=== PATIENT | female | born 2000 | race Two or more races ===

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

== ENCOUNTER 2022-04-13 08:52 | Emergency (ER) | payer OTHER, MEDICAID, SELFPAY ==
[2022-04-13] VITALS (12 sets, daily range): BP systolic 104–152; BP diastolic 67–81; PULSE 108–167; RESP 15–27; TEMP 36.9; O2SAT 98–100
--- NOTE | ~2022-04-13 | XR_ITS ---
Clinical Indication: Chest pain PA and lateral views of the chest: Comparison: 10/07/2020 Findings: The lungs are clear, without evidence of focal consolidation or pleural effusion. Cardiome diastinal silhouette is within normal limits. Bones and soft tissues are unremarkable. Impression: Normal chest. Reviewed, dictated and finalized at [facility]. ORT UTILITY WORKER Impression: Normal chest.
--- NOTE | 2022-04-13 09:18 | ED.CHESTPAIN ---
HPI - Chest Pain General Chief Complaint: Chest Pain Stated Complaint: chest pain, left arm pain, tachycardia Time Seen by Provider: 04/13/22 08:55 Source: patient and old records reviewed Mode of arrival: ambulatory Limitations: no limitations History of Present Illness HPI narrative: Patient is a 21 y/o female who presents to the ED with c/o CP, lightheadedness, and palpitations. Patient reports having pain in her left-sided chest, under her left breast for the past 2 days. Pain is intermittent, occurs several times a day, lasts a few minutes before resolving. She denies any known aggravating or alleviating factors. She has not tried anything for her pain. She notes a history of acid reflux, but does not currently take any medicine for this. She also notes a history of anxiety, but is also not on medicine. Patient also reports having constant lightheadedness for the past 2 days and palpitations, stating her heart rate will range from 40 to 160 bpm. Patient has a history of palpitations and tachycardia. Per patient's records, she had cardiac work-up [place] [address] Hendrickson which was unremarkable, with negative Holter monitors and stress testing. Holter monitor did record tachycardia, but no signs of SVT or atrial fibrillation. Patient does not follow with cardiology any further. Patient denies any shortness of breath, lower extremity edema or pain, pleuritic pain, cough, cold symptoms, fever, nausea, vomiting, abdominal pain, KEITA, syncope. Related Data Home Medications Medication Instructions Recorded Confirmed No Home Medications 04/13/22 04/13/22 Allergies Allergy/AdvReac Type Severity Reaction Status Date / Time No Known Allergies Allergy Verified 04/13/22 09:01 Review of Systems Review of Systems: CONSTITUTIONAL: Denies fever, chills, or sweats. EYES: Denies visual changes, redness, or discharge. ENT: Denies rhinorrhea, congestion, sore throat, or otalgia. CARDIOVASCULAR: See HPI. RESPIRATORY: Denies cough or dyspnea. GASTROINTESTINAL: Denies abdominal pain, nausea, vomiting, or diarrhea. MUSCULOSKELETAL: Denies back pain, joint pain, or myalgia. NEUROLOGIC: See HPI. All systems reviewed & are unremarkable except as noted in HPI and below PMFSH Past Medical History Medical History (Updated 04/13/22 @ 10:59 by Marina Rahman PA-C) ADD (attention deficit disorder) without hyperactivity Anxiety BMI 27.0-27.9,adult BMI 28.0-28.9,adult GERD (gastroesophageal reflux disease) Palpitations Surgical History Surgical History No significant past surgical history Family History Family History Father Alive and well Hypertension Mother Hypertension Epilepsy Sibling No problems noted. Social History Social History Smoking status: Never smoker Second hand tobacco smoke exposure: No Alcohol intake: never Substance use: never Substance use type: does not use Living arrangements: with family Occupation/Education: other Gender identity (if verbalized by the patient): Female Exam Narrative: GENERAL: Well appearing, obese, non-toxic, in no acute distress. HEAD: Normocephalic, atraumatic. NECK: Supple. No adenopathy, no masses. RESPIRATORY: Airway patent, respirations nonlabored. Clear to auscultation bilaterally, no rales, rhonchi, wheezing. CARDIOVASCULAR: Tachycardic with regular rhythm without murmurs, rubs, or gallops. Peripheral pulses 2+ and equal bilaterally. ABDOMINAL: Soft, nontender, nondistended, no hepatosplenomegaly. Normoactive BS. MUSCULOSKELETAL: Moves all extremities. Strength/ROM intact without gross deformities. No edema. No calf tenderness. No chest wall tenderness to palpation. SKIN: Warm, dry, normal color. No rashes. NEURO: A&O X3. Speech clear. Cranial nerves II-XII grossly intact. St
[2022-04-13 09:34] LABS: Basophils Percent Auto 0.3 % (0.2-1.2); Eosinophils Percent Auto 0.4 % (0-4.4); Hematocrit 38.4 % (37.0-47.0); Hemoglobin 13.6 g/dL (12.0-15.0); Immature Granulocyte Absolute 0.02 K/mm3 (0.00-0.031); Immature Granulocyte Percent A 0.2 % (0-0.5); Lymphocytes Absolute Auto 2.22 K/mm3 (0.9-3.2); Lymphocytes Percent Auto 22.6 % (18.3-44.2); Mean Corpuscular HGB Conc 35.4 g/dl (32-36); Mean Corpuscular Hemoglobin 29.8 pg (26-34); Mean Corpuscular Volume 84.2 fl (80-100); Mean Platelet Volume 10.4 fl (7.4-10.4); Monocytes Absolute Auto 0.5 K/mm3 (0.1-0.6); Neutrophils Percent Auto 71.5 % (45.5-73.1); Platelet Count Result 232 k/mm3 (150-375); Red Blood Count 4.56 M/mm3 (4.2-5.4); Red Cell Distribution Width 12.7 % (11.5-14.5); White Blood Count 9.8 K/mm3 (4.5-10.0)
[2022-04-13] MEDS: BELLADONNA ALK/PHENOB ELIX 10 ML, MAG HYDROX/ALUMINUM HYD/SIMETH 30 ML, LIDOCAINE HCL 2... PO (09:35)
[2022-04-13 09:38] LABS: Alanine Aminotransferase 19 U/L (6-35); Albumin Level 4.7 g/dL (3.5-5.1); Alkaline Phosphatase 89 U/L (38-126); Anion Gap 8 mmol/L (8-16); Aspartate Amino Transferase 23 U/L (14-36); Bilirubin,Total 0.5 mg/dL (0.2-1.3); Blood Urea Nitrogen 14 mg/dL (7-17); Calcium 8.5 mg/dL (8.4-10.2); Carbon Dioxide 22 mmol/L (22-30); Chloride 104 mmol/L (98-107); Estimated CRCL calculation 105 ml/min; Estimated Glomerular Filt Rate > 60; Glucose 104 mg/dL (65-110); Lipase 54 U/L (23-300); Potassium 3.5 mmol/L (3.4-5.0); Sodium 134 mmol/L (137-145)
[2022-04-13] MEDS: SODIUM CHLORIDE 0.9% IV 1,000 ML 999 ML IV CONT (09:45)
[2022-04-13 09:50] LABS: Troponin I < 0.012 ng/mL (0.000-0.034)
[2022-04-13 09:57] LABS: D Dimer 0.27 ug/mL (<0.48)
--- NOTE | 2022-04-13 10:07 | ECG_ITS ---
Measurements Intervals [place] Rate: 157 P: NM: 0 QRS: 64 QRSD: 88 T: 43 QT: 286 QTc: 463 Interpretive Statements SINUSS TACHYCARDIA BORDERLINE ST-T WAVE ABNORMALITY- ANT/INF LEADS BASELINE WANDER- III, V1-V3 ABNORMAL ECG COMPARED TO ECG 09/21/2020 15:19:34 NO SIGNIFICANT CHANGES Electronically Signed On 04-13-2022 10:23:08 FILE KEEPER by Vincent Hendrickson D.O.
--- NOTE | 2022-04-13 10:20 | ECG_ITS ---
Measurements Intervals [place] Rate: 116 P: 41 OR: 135 QRS: 50 QRSD: 93 T: 35 QT: 307 QTc: 426 Interpretive Statements SINUS TACHYCARDIA ABNORMAL ECG COMPARED TO ECG 04/13/2022 09:03:15 HEART RATE HAS DECREASED Electronically Signed On 04-13-2022 11:44:00 MARINE ENGINE DRIVER by Vincent Hendrickson D.O.
[2022-04-13 10:25] LABS: Magnesium 1.9 mg/dL (1.6-2.3)
--- NOTE | 2022-04-13 11:46 | PC.NURSE ---
holter monitor placed by cardiology
--- NOTE | 2022-04-26 15:03 | PC.NURSE ---
LATE ENTRY This note is being entered to document information to the patient's record. The following information was omitted on [04/13/22], by [Gale Giles]. NS stop time was 1049
== END 2022-04-13 11:46 | disposition home or self-care (01) ==
PROVIDERS: Emergency Provider Physician Assistant; PCP Family Medicine
DX: R07.89 Other chest pain (principal); R00.0 Tachycardia, unspecified; K21.9 Gastro-esophageal reflux disease without esophagitis; R94.31 Abnormal electrocardiogram [ECG] [EKG]
CPT/HCPCS: 36415; 71046; 80053; 81025; 83690; 83735; 84484; 85025; 85380; 93005; 96360; 99284; A9270; J7030

== ENCOUNTER 2022-06-18 18:20 | Emergency (ER) | payer OTHER, MEDICAID, SELFPAY ==
--- NOTE | ~2022-06-18 | XR_ITS ---
EXAMINATION: XR chest 2V DATE: 06/18/2022 19:01 INDICATION: Chest pain TECHNIQUE: PA and lateral views of the chest were obtained. COMPARISON: Chest radiograph dated 04/13/2022 FINDINGS: The lungs are clear with no focal airspace opacities, pulmonary edema, pleural effusion or pneumothor ax. The cardiomediastinal silhouette is normal. Visualized bones and soft tissues are unremarkable. IMPRESSION: 1. No acute cardiopulmonary disease. Reviewed, dictated and finalized at location A.
--- NOTE | 2022-06-18 18:22 | ECG_ITS ---
Measurements Intervals [place] Rate: 120 P: 50 WV: 124 QRS: 68 QRSD: 86 T: 27 QT: 320 QTc: 454 Interpretive Statements SINUS TACHYCARDIA NONSPECIFIC T-WAVE ABNORMALITY ABNORMAL RHYTHM ECG COMPARED TO ECG 04/13/2022 10:28:06 NO SIGNIFICANT ABNORMALITY Electronically Signed On 06-19-2022 15:16:04 CDT by Catarina Flores M.D.
[2022-06-18 18:41] LABS: Basophils Percent Auto 0.3 % (0.2-1.2); Eosinophils Percent Auto 0.5 % (0-4.4); Hematocrit 40.5 % (37.0-47.0); Hemoglobin 14.2 g/dL (12.0-15.0); Immature Granulocyte Absolute 0.02 K/mm3 (0.00-0.031); Immature Granulocyte Percent A 0.2 % (0-0.5); Lymphocytes Absolute Auto 2.29 K/mm3 (0.9-3.2); Lymphocytes Percent Auto 26.7 % (18.3-44.2); Mean Corpuscular HGB Conc 35.1 g/dl (32-36); Mean Corpuscular Hemoglobin 29.7 pg (26-34); Mean Corpuscular Volume 84.7 fl (80-100); Mean Platelet Volume 10.6 fl (7.4-10.4); Monocytes Absolute Auto 0.5 K/mm3 (0.1-0.6); Monocytes Percent Auto 5.4 % (2.6-8.5); Neutrophils Absolute Auto 5.7 K/mm3 (1.3-6.7); Neutrophils Percent Auto 66.9 % (45.5-73.1); Platelet Count Result 284 k/mm3 (150-375); Red Blood Count 4.78 M/mm3 (4.2-5.4); Red Cell Distribution Width 12.4 % (11.5-14.5); White Blood Count 8.6 K/mm3 (4.5-10.0)
[2022-06-18 18:56] LABS: Alanine Aminotransferase 19 U/L (6-35); Albumin Level 5.2 g/dL (3.5-5.1); Alkaline Phosphatase 103 U/L (38-126); Anion Gap 14 mmol/L (8-16); Aspartate Amino Transferase 30 U/L (14-36); Bilirubin,Total 0.7 mg/dL (0.2-1.3); Blood Urea Nitrogen 9 mg/dL (7-17); Calcium 9.2 mg/dL (8.4-10.2); Carbon Dioxide 21 mmol/L (22-30); Chloride 105 mmol/L (98-107); Estimated Glomerular Filt Rate > 60; Glucose 94 mg/dL (65-110); INR 1.1; Lipase 45 U/L (23-300); Potassium 3.8 mmol/L (3.4-5.0); Prothrombin Time 13.4 Seconds (11.1-14.7); Sodium 140 mmol/L (137-145)
[2022-06-18 18:57] LABS: Partial Thromboplastin Time 29.1 SECONDS (22.3-36.8)
[2022-06-18 19:05] LABS: Troponin I < 0.012 ng/mL (0.000-0.034)
[2022-06-18 19:08] VITALS: BP 146/99; PULSE 112; RESP 18; TEMP 36.9; O2SAT 98
[2022-06-18 22:45] VITALS: BP 132/71; PULSE 107; RESP 18; TEMP 36.6; O2SAT 100
[2022-06-18 23:27] LABS: Troponin I < 0.012 ng/mL (0.000-0.034)
[2022-06-19] VITALS (27 sets, daily range): BP systolic 101–121; BP diastolic 58–85; PULSE 82–133; RESP 17–25; TEMP 36.7; O2SAT 94–100
--- NOTE | 2022-06-19 03:10 | ED.GENADULT ---
HPI - General Adult General Chief complaint: Chest Pain Stated complaint: chest pain Time Seen by Provider: 06/19/22 02:56 History of Present Illness HPI narrative: Patient 21-year-old female who presents the emergency department with chief complaint of chest pain and palpitations. Patient reports that she has been having episodes of fast heart rate at times seeing Dr. Lopez with cardiology Related Data Home Medications Medication Instructions Recorded Confirmed No Home Medications 04/13/22 05/25/22 Allergies Allergy/AdvReac Type Severity Reaction Status Date / Time No Known Allergies Allergy Verified 05/25/22 13:48 [facility] Past Medical History Medical History ADD (attention deficit disorder) without hyperactivity Anxiety BMI 27.0-27.9,adult BMI 28.0-28.9,adult GERD (gastroesophageal reflux disease) Palpitations Surgical History Surgical History No significant past surgical history Family History Family History Father Alive and well Hypertension Mother Hypertension Epilepsy Sibling No problems noted. Social History Social History Smoking status: Never smoker Second hand tobacco smoke exposure: No Alcohol intake: never Substance use: never Substance use type: does not use Living arrangements: with family Occupation/Education: other Gender identity (if verbalized by the patient): Female Course Vital Signs Vital signs: Vital Signs Temperature 36.9 C 06/18/22 19:08 Pulse Rate 112 H 06/18/22 19:08 Respiratory Rate 18 06/18/22 19:08 Blood Pressure 146/99 H 06/18/22 19:08 Pulse Oximetry 98 06/18/22 19:08 Oxygen Delivery Room Air 06/18/22 19:08 Temperature 36.7 C 06/19/22 02:20 Pulse Rate 97 06/19/22 04:49 Respiratory Rate 18 06/19/22 04:49 Blood Pressure 105/83 06/19/22 04:49 Pulse Oximetry 100 06/19/22 04:49 Oxygen Delivery Room Air 06/19/22 02:23 Medical Decision Making Vital Signs Vital Signs: Vital Signs Temperature 36.9 C 06/18/22 19:08 Pulse Rate 112 H 06/18/22 19:08 Respiratory Rate 18 06/18/22 19:08 Blood Pressure 146/99 H 06/18/22 19:08 Pulse Oximetry 98 06/18/22 19:08 Oxygen Delivery Room Air 06/18/22 19:08 Temperature 36.7 C 06/19/22 02:20 Pulse Rate 97 06/19/22 04:49 Respiratory Rate 18 06/19/22 04:49 Blood Pressure 105/83 06/19/22 04:49 Pulse Oximetry 100 06/19/22 04:49 Oxygen Delivery Room Air 06/19/22 02:23 Lab Data 06/18/22 18:35 06/18/22 18:35 Labs: Lab Results 06/18/22 06/18/22 06/18/22 Range/Units 18:35 18:35 18:35 WBC 8.6 (4.5-10.0) K/mm3 RBC 4.78 (4.2-5.4) M/mm3 Hgb 14.2 (12.0-15.0) g/dL Hct 40.5 (37.0-47.0) % MCV 84.7 (80-100) fl MCH 29.7 (26-34) pg MCHC 35.1 (32-36) g/dl RDW 12.4 (11.5-14.5) % Plt Count 284 (150-375) k/mm3 MPV 10.6 H (7.4-10.4) fl Immature Gran % (Auto) 0.2 (0-0.5) % Neut % (Auto) 66.9 (45.5-73.1) % Lymph % (Auto) 26.7 (18.3-44.2) % Gaines % (Auto) 5.4 (2.6-8.5) % Eos % (Auto) 0.5 (0-4.4) % Baso % (Auto) 0.3 (0.2-1.2) % Lymph # (Auto) 2.29 (0.9-3.2) K/mm3 Gaines # (Auto) 0.5 (0.1-0.6) K/mm3 Eos # (Auto) 0.0 (0-0.3) K/mm3 Baso # (Auto) 0.0 (0.0-0.1) K/mm3 Abs Immat Gran (auto) 0.02 (0.00-0.031) K/mm3 Absolute Neuts (auto) 5.7 (1.3-6.7) K/mm3 Absolute Nucleated RBC 0.0 (0.0-0.012) K/mm3 Nucleated RBC % 0.0 (0.0-0.2) % PT 13.4 (11.1-14.7) Seconds INR 1.1 APTT 29.1 (22.3-36.8) SECONDS Sodium 140 (137-145) mmol/L Potassium 3.8 (3.4-5.0) mmol/L Chloride 105 (98-107) mmol/L Carbon Dioxide 21 L (22-30) mmol/L
--- NOTE | 2022-06-19 03:15 | ED.GENADULT ---
HPI - General Adult General Chief complaint: Chest Pain Stated complaint: chest pain Time Seen by Provider: 06/19/22 02:56 History of Present Illness HPI narrative: Patient 21-year-old female who presents emergency department chief complaint of chest pain and palpitations. Patient reports that she has been seeing cardiology Dr. Hendrickson and has had a Holter monitor test the patient states that today she came in after she has been feeling lightheaded and noticed that her heart rates been running somewhat fast. Patient states she had a sharp-like sensation in her chest patient reports the pain is not improved by anything nor is it worse but again. Related Data Home Medications Medication Instructions Recorded Confirmed No Home Medications 04/13/22 05/25/22 Allergies Allergy/AdvReac Type Severity Reaction Status Date / Time No Known Allergies Allergy Verified 05/25/22 13:48 Review of Systems Review of Systems: A 10 system review of systems was completed on the patient and is negative except for what is stated in the HPI. Nursing and ancillary documentation was reviewed. [facility] Past Medical History Medical History ADD (attention deficit disorder) without hyperactivity Anxiety BMI 27.0-27.9,adult BMI 28.0-28.9,adult GERD (gastroesophageal reflux disease) Palpitations Surgical History Surgical History No significant past surgical history Family History Family History Father Alive and well Hypertension Mother Hypertension Epilepsy Sibling No problems noted. Social History Social History Smoking status: Never smoker Second hand tobacco smoke exposure: No Alcohol intake: never Substance use: never Substance use type: does not use Living arrangements: with family Occupation/Education: other Gender identity (if verbalized by the patient): Female Exam Narrative: GENERAL: Well-appearing, well-nourished, and in no acute distress. HEAD: Normocephalic, atraumatic. EYES: PERRLA and EOMI. ENT: Nares clear, no rhinorrhea or epistaxis. Mucous membranes moist. NECK: Supple. CHEST: Clear to auscultation. No respiratory distress. HEART: Regular rate and rhythm. No murmur heard. Normal peripheral pulses. ABDOMEN: Soft, nontender, nondistended, normal active bowel sounds. EXTREMITIES: Normal range of motion. No edema. SKIN: Warm, dry, no rash. NEURO: No focal deficits. Alert and oriented x3. PSYCH: Normal mood and affect. Course Vital Signs Vital signs: Vital Signs Temperature 36.9 C 06/18/22 19:08 Pulse Rate 112 H 06/18/22 19:08 Respiratory Rate 18 06/18/22 19:08 Blood Pressure 146/99 H 06/18/22 19:08 Pulse Oximetry 98 06/18/22 19:08 Oxygen Delivery Room Air 06/18/22 19:08 Temperature 36.7 C 06/19/22 02:20 Pulse Rate 117 H 06/19/22 05:11 Respiratory Rate 18 06/19/22 04:49 Blood Pressure 118/80 06/19/22 05:11 Pulse Oximetry 100 06/19/22 04:49 Oxygen Delivery Room Air 06/19/22 02:[address] [facility] Narrative Medical decision making narrative: Medical diagnosis includes dysrhythmia, dehydration, electrolyte abnormality, NSTEMI, ACS EKG is sinus tachycardia rate of [address] elevation or ST depression Discomfort has been ongoing patient did have 2 negative sets of troponins while in the lobby electrolytes showed a potassium of 3.8 she has normal renal function normal liver enzymes CBC showed a hemoglobin of 14.2 Patient is low risk for ACS and has had 2 negative troponins. Orthostatics will be checked on the patient and the plan will be to discharge the patient to have her follow-up with Dr. Hendrickson Patient did have an increase in her heart rate and a slight drop in her blood pres
[2022-06-19] MEDS: SODIUM CHLORIDE 0.9% IV 1,000 ML 999 ML IV CONT (04:18)
== END 2022-06-19 05:48 | disposition home or self-care (01) ==
PROVIDERS: Emergency Medicine; Emergency Provider Emergency Medicine; PCP Family Medicine
DX: R07.89 Other chest pain (principal); R00.2 Palpitations; K21.9 Gastro-esophageal reflux disease without esophagitis
CPT/HCPCS: 36415; 71046; 80053; 83690; 84484; 85025; 85610; 85730; 93005; 96360; 99283; J7030

== ENCOUNTER 2022-10-16 01:34 | Emergency (ER) | payer OTHER, MEDICAID, SELFPAY ==
--- NOTE | ~2022-10-16 | US_ITS ---
EXAMINATION: US pelvic complete DATE: 10/16/2022 07:56 INDICATION: Ovarian cyst. TECHNIQUE: Multiple transabdominal sonographic images of the pelvis were obtained. COMPARISON: CT abdomen and pelvis 10/16/22, ultrasound 12/07/16 FINDINGS: The uterus measures 7.1 x 2.8 x 4.8 cm. There is no free fluid in the pelvis. The endometrial complex is not well visualized, but is likely normal in thickness. The right ovary measures 6.4 x 5.0 x 5.4 cm. There is a 5.7 cm cyst with eccentric low-level echoes in right ovary. The left ovary measures 2. 9 x 1.9 x 2.2 cm. There is normal vascular flow in the ovaries. IMPRESSION: 1. 5.7 cm cystic mass in right ovary, likely a hemorrhagic cyst. Pelvis ultrasound is recommended in 6-12 weeks. Reviewed, dictated and finalized at location A. IMPRESSION: 1. 5.7 cm cystic mass in right ovary, likely a hemorrhagic cyst. Pelvis ultraso und is recommended in 6-12 weeks.
--- NOTE | ~2022-10-16 | CT_ITS ---
CT of the Abdomen and Pelvis: Indication: Abdominal Technique: 2.5 mm axial scans were obtained through the abdomen and pelvis following intravenous adm inistration of 100 cc of Omnipaque 350. Dose reduction technique was used on this scan by utilizing a utomated exposure control and iterative reconstruction technique. The dose-length product (DLP) was 4 76.84 mGy-cm. COMPARISON: 05/11/2018 Findings: Scans through the lung bases are unremarkable. The liver, spleen, pancreas, gallbladder, adrenals and kidneys are within normal limits. No evidence of aortic aneurysm. No lymphadenopathy. No bowel obstruction or bowel wall thickening. There is no evidence to suggest acute appendicitis. Images through the pelvis were performed. Urinary bladder unremarkable. There is a 5.9 cm adnexal cys tic mass, which may arise from the right ovary although it is mildly displaced to the left. No ascite s. Impression: 5.9 cm adnexal cyst, which may arise from the right ovary despite being just left of midline. Conside r ultrasound to assess for torsion. Reviewed, dictated and finalized at location M. Impression: 5.9 cm adnexal cyst, which may arise from the right ovary despite being just le ft of midline. Consider ultrasound to assess for torsion.
[2022-10-16 01:43] VITALS: BP 118/73; PULSE 109; RESP 14; TEMP 36.3; O2SAT 100
[2022-10-16 01:57] LABS: Basophils Percent Auto 0.3 % (0.2-1.2); Eosinophils Percent Auto 0.2 % (0-4.4); Immature Granulocyte Absolute 0.04 K/mm3 (0.00-0.031); Immature Granulocyte Percent A 0.3 % (0-0.5); Lymphocytes Absolute Auto 3.27 K/mm3 (0.9-3.2); Lymphocytes Percent Auto 23.2 % (18.3-44.2); Mean Corpuscular Hemoglobin 29.8 pg (26-34); Mean Corpuscular Volume 85.1 fl (80-100); Mean Platelet Volume 10.7 fl (7.4-10.4); Monocytes Absolute Auto 0.8 K/mm3 (0.1-0.6); Monocytes Percent Auto 5.6 % (2.6-8.5); Neutrophils Absolute Auto 9.9 K/mm3 (1.3-6.7); Neutrophils Percent Auto 70.4 % (45.5-73.1); Platelet Count Result 268 k/mm3 (150-375); Red Cell Distribution Width 12.6 % (11.5-14.5); White Blood Count 14.1 K/mm3 (4.5-10.0)
[2022-10-16 02:07] LABS: Alanine Aminotransferase 55 U/L (6-35); Albumin Level 5.2 g/dL (3.5-5.1); Alkaline Phosphatase 109 U/L (38-126); Anion Gap 14 mmol/L (8-16); Aspartate Amino Transferase 34 U/L (14-36); Bilirubin,Total 0.6 mg/dL (0.2-1.3); Blood Urea Nitrogen 10 mg/dL (7-17); Calcium 9.8 mg/dL (8.4-10.2); Carbon Dioxide 23 mmol/L (22-30); Chloride 103 mmol/L (98-107); Estimated CRCL calculation 92 ml/min; Estimated Glomerular Filt Rate > 60; Glucose 100 mg/dL (65-110); Potassium 3.5 mmol/L (3.4-5.0); Sodium 140 mmol/L (137-145)
[2022-10-16 02:10] LABS: Appearance Urine Turbid (Clear); Bacteria Urine 3+ /hpf; Bilirubin Urine Negative (Negative); Blood Urine 3+ (Negative); Color Urine Yellow (Yellow); Glucose Urine UA Negative (Negative); Ketones Urine Trace mg/dL (Negative); Leukocyte Esterase Ur 1+ LEU/UL (Negative); Need Manual Microscopic Reviewed; Nitrate Urine Negative (Negative); Protein Urine 1+ mg/dL (Negative); Specific Grav Ur 1.033 (1.001-1.035); Squamous Epithelial Cell Urine Many /hpf (Few); pH Urine 5.5 (5.0-9.0)
[2022-10-16 02:16] LABS: Add Urine Microscopic? YES
[2022-10-16] MEDS: SODIUM CHLORIDE 0.9% IV 1,000 ML 999 ML IV CONT (03:49)
[2022-10-16] MEDS: ONDANSETRON INJ 4 MG/2 ML VIAL IV PUSH (03:49)
[2022-10-16] MEDS: MORPHINE SULFATE (*CRX) 4 MG/ML INJ IV PUSH (03:58)
--- NOTE | 2022-10-16 04:16 | ED.GENADULT ---
HPI - General Adult General Chief complaint: Abdominal Pain <Lance Joseph MD - Last Filed: 10/16/22 06:48> Stated complaint: R flank/abd pain <Lance Joseph MD - Last Filed: 10/16/22 06:48> Time Seen by Provider: 10/16/22 03:21 <Lance Joseph MD - Last Filed: 10/16/22 06:48> History of Present Illness HPI narrative: Patient is a 22-year-old female who presents the emergency department with chief complaint of abdominal pain patient reports that she started having pain in the right side of her abdomen patient reports that sharp type pain reports not improved by anything. Patient reports no prior intra-abdominal surgeries reports no fever reports she had a little bit of nausea <Lance Joseph MD - Last Filed: 10/16/22 06:48> Related Data Allergies/adverse reactions: Allergies Allergy/AdvReac Type Severity Reaction Status Date / Time No Known Allergies Allergy Verified 10/16/22 02:18 <Lance Joseph MD - Last Filed: 10/16/22 06:48> Review of Systems Review of Systems: A 10 system review of systems was completed on the patient and is negative except for what is stated in the HPI. Nursing and ancillary documentation was reviewed. <Lance Joseph MD - Last Filed: 10/16/22 06:48> PMFSH Past Medical History Medical History: Medical History ADD (attention deficit disorder) without hyperactivity Anxiety BMI 27.0-27.9,adult BMI 28.0-28.9,adult GERD (gastroesophageal reflux disease) Palpitations <Lance Joseph MD - Last Filed: 10/16/22 06:48> Surgical History Surgical History: Surgical History No significant past surgical history <Lance Joseph MD - Last Filed: 10/16/22 06:48> Family History Family History: Family History Father Alive and well Hypertension Mother Hypertension Epilepsy Sibling No problems noted. <Lanec Joseph MD - Last Filed: 10/16/22 06:48> Social History Social History: Social History Smoking status: Never smoker Second hand tobacco smoke exposure: No Alcohol intake: never Substance use: never Substance use type: does not use Living arrangements: with family Occupation/Education: other Gender identity (if verbalized by the patient): Female <Lance Joseph MD - Last Filed: 10/16/22 06:48> Exam Narrative: GENERAL: Well-appearing, well-nourished, and in no acute distress. HEAD: Normocephalic, atraumatic. EYES: PERRLA and EOMI. ENT: Nares clear, no rhinorrhea or epistaxis. Mucous membranes moist. NECK: Supple. CHEST: Clear to auscultation. No respiratory distress. HEART: Regular rate and rhythm. No murmur heard. Normal peripheral pulses. ABDOMEN: Soft, tenderness to palpation in the right upper quadrant, nondistended, normal active bowel sounds. EXTREMITIES: Normal range of motion. No edema. SKIN: Warm, dry, no rash. NEURO: No focal deficits. Alert and oriented x3. PSYCH: Normal mood and affect. <Lance Joseph MD - Last Filed: 10/16/22 06:48> Course Vital Signs Vital signs: Vital Signs Temperature 97.4 F L 10/16/22 01:43 Pulse Rate 109 H 10/16/22 01:43 Respiratory Rate 14 10/16/22 01:43 Blood Pressure 118/73 10/16/22 01:43 Pulse Oximetry 100 10/16/22 01:43 Oxygen Delivery Room Air 10/16/22 01:43 Temperature 97.4 F L 10/16/22 01:43 Pulse Rate 93 10/16/22 07:48 Respiratory Rate 18 10/16/22 07:48 Blood Pressure 118/89 10/16/22 07:48 Pulse Oximetry 100 10/16/22 07:48 Oxygen Delivery Room Air 10/16/22 01:43 <Lance Joseph MD - Last Filed: 10/16/22 06:48> Vital Signs
[2022-10-16 06:09] VITALS: BP 107/62; PULSE 84; RESP 14; O2SAT 100
[2022-10-16 07:48] VITALS: BP 118/89; PULSE 93; RESP 18; O2SAT 100
== END 2022-10-16 08:38 | disposition home or self-care (01) ==
PROVIDERS: Emergency Provider Emergency Medicine; PCP Family Medicine
DX: N39.0 Urinary tract infection, site not specified (principal); N94.89 Other specified conditions associated with female genital organs and menstrual cycle; R10.9 Unspecified abdominal pain
CPT/HCPCS: 36415; 74177; 76856; 80053; 81001; 81025; 85025; 87086; 87088; 96361; 96374; 96375; 99284; J2270; J2405; J7030; Q9967

== ENCOUNTER 2022-11-12 00:37 | Emergency (ER) | payer OTHER, MEDICAID, SELFPAY ==
[2022-11-12] VITALS (8 sets, daily range): BP systolic 100–133; BP diastolic 55–83; PULSE 72–105; RESP 15–20; TEMP 36.2; O2SAT 91–100
--- NOTE | ~2022-11-12 | US_ITS ---
Pelvic ultrasound. Clinical History: Pelvic pain COMPARISON: 10/16/2022 Technique: Realtime transabdominal scanning of the pelvis was performed. Color flow Doppler and Doppl er spectral analysis were performed. Patient refused transvaginal imaging. Findings: The uterus is anteverted. The endometrial stripe has a thickness of 4 mm. No focal mass is identified. The right ovary is not visualized. No significant right ovarian or adnexal mass is seen. The left ovary measures 3.0 x 2.1 x 2.5 cm. No significant left ovarian or adnexal mass is seen. There is no evidence of free fluid in the cul de sac. Impression: Uterus and left ovary are unremarkable. Right ovary not visualized. Reviewed, dictated and finalized at [facility]. Impression: Uterus and left ovary are unremarkable. Right ovary not visualized.
--- NOTE | ~2022-11-12 | CT_ITS ---
CT of the Abdomen and Pelvis: Indication: Right lower quadrant pain COMPARISON: 10/16/2022 Technique: 2.5 mm axial scans were obtained through the abdomen and pelvis following intravenous adm inistration of 100 cc of Omnipaque 350. Dose reduction technique was used on this scan by utilizing a utomated exposure control and iterative reconstruction technique. The dose-length product (DLP) was 4 52.15 mGy-cm. Findings: Scans through the lung bases are unremarkable. The liver, spleen, pancreas, gallbladder, adrenals and kidneys are within normal limits. No evidence of aortic aneurysm. No lymphadenopathy. No bowel obstruction or bowel wall thickening. There is no evidence to suggest acute appendicitis. Images through the pelvis were performed. Urinary bladder unremarkable. No adnexal mass evident. No a scites. Impression: No significant abnormalities seen. Reviewed, dictated and finalized at [facility]. Impression: No significant abnormalities seen.
[2022-11-12 00:54] LABS: Appearance Urine Clear (Clear); Bacteria Urine 1+ /hpf; Bilirubin Urine Negative (Negative); Blood Urine Trace (Negative); Color Urine Yellow (Yellow); Glucose Urine UA Negative (Negative); Ketones Urine Negative (Negative); Leukocyte Esterase Ur 1+ LEU/UL (Negative); Nitrate Urine Negative (Negative); Non Pathogenic Casts 0-2; Protein Urine Negative (Negative); Specific Grav Ur 1.023 (1.001-1.035); Squamous Epithelial Cell Urine Occasional /hpf (Few); WBC Urine 21-50 /hpf; pH Urine 6.5 (5.0-9.0)
[2022-11-12 01:03] LABS: Add Urine Microscopic? YES
[2022-11-12 01:16] LABS: Basophils Absolute Auto 0.1 K/mm3 (0.0-0.1); Basophils Percent Auto 0.4 % (0.2-1.2); Eosinophils Absolute Auto 0.1 K/mm3 (0-0.3); Eosinophils Percent Auto 0.7 % (0-4.4); Hematocrit 41.2 % (37.0-47.0); Hemoglobin 14.3 g/dL (12.0-15.0); Immature Granulocyte Absolute 0.02 K/mm3 (0.00-0.031); Immature Granulocyte Percent A 0.2 % (0-0.5); Lymphocytes Absolute Auto 3.36 K/mm3 (0.9-3.2); Lymphocytes Percent Auto 28.9 % (18.3-44.2); Mean Corpuscular HGB Conc 34.7 g/dl (32-36); Mean Corpuscular Hemoglobin 29.9 pg (26-34); Mean Platelet Volume 10.8 fl (7.4-10.4); Monocytes Absolute Auto 0.6 K/mm3 (0.1-0.6); Monocytes Percent Auto 5.3 % (2.6-8.5); Neutrophils Absolute Auto 7.5 K/mm3 (1.3-6.7); Neutrophils Percent Auto 64.5 % (45.5-73.1); Platelet Count Result 261 k/mm3 (150-375); Red Blood Count 4.79 M/mm3 (4.2-5.4); Red Cell Distribution Width 12.4 % (11.5-14.5); White Blood Count 11.6 K/mm3 (4.5-10.0)
[2022-11-12 01:27] LABS: Alanine Aminotransferase 21 U/L (6-35); Albumin Level 5.2 g/dL (3.5-5.1); Alkaline Phosphatase 97 U/L (38-126); Anion Gap 12 mmol/L (8-16); Aspartate Amino Transferase 30 U/L (14-36); Bilirubin,Total 0.4 mg/dL (0.2-1.3); Blood Urea Nitrogen 12 mg/dL (7-17); Calcium 9.8 mg/dL (8.4-10.2); Carbon Dioxide 26 mmol/L (22-30); Chloride 103 mmol/L (98-107); Estimated CRCL calculation 94 ml/min; Estimated Glomerular Filt Rate > 60; Glucose 100 mg/dL (65-110); Lipase 67 U/L (23-300); Potassium 3.7 mmol/L (3.4-5.0); Sodium 141 mmol/L (137-145)
--- NOTE | 2022-11-12 02:08 | PC.NURSE ---
US called this RN and asked for pt to be drinking water as a full bladder is needed for test.
--- NOTE | 2022-11-12 02:27 | PC.NURSE ---
Pt to US at this time.
--- NOTE | 2022-11-12 03:49 | ED.GENADULT ---
HPI - General Adult General Chief complaint: Abdominal Pain Stated complaint: side and abdominal pain Time Seen by Provider: 11/12/22 01:11 History of Present Illness HPI narrative: Patient is a 22-year-old female who presents the emergency department with chief complaint of right lower quadrant pain. The patient reports that she has history of ovarian cyst reports that she has pain in the right lower quadrant is gotten worse patient reports that she had a large ovarian cyst on the right side and was seen in the emergency department several weeks ago the patient reports that the pain has been doing okay and then tonight things got worse. Patient reports the pain is worse with movement and improved with rest Related Data Allergies Allergy/AdvReac Type Severity Reaction Status Date / Time No Known Allergies Allergy Verified 10/16/22 02:18 Review of Systems Review of Systems: A 10 system review of systems was completed on the patient and is negative except for what is stated in the HPI. Nursing and ancillary documentation was reviewed. PMFSH Past Medical History Medical History ADD (attention deficit disorder) without hyperactivity Anxiety BMI 27.0-27.9,adult BMI 28.0-28.9,adult GERD (gastroesophageal reflux disease) Palpitations Surgical History Surgical History No significant past surgical history Family History Family History Father Alive and well Hypertension Mother Hypertension Epilepsy Sibling No problems noted. Social History Social History Smoking status: Never smoker Second hand tobacco smoke exposure: No Alcohol intake: never Substance use: never Substance use type: does not use Living arrangements: with family Occupation/Education: other Gender identity (if verbalized by the patient): Female Exam Narrative: GENERAL: Well-appearing, well-nourished, and in no acute distress. HEAD: Normocephalic, atraumatic. EYES: PERRLA and EOMI. ENT: Nares clear, no rhinorrhea or epistaxis. Mucous membranes moist. NECK: Supple. CHEST: Clear to auscultation. No respiratory distress. HEART: Regular rate and rhythm. No murmur heard. Normal peripheral pulses. ABDOMEN: Soft, tenderness to palpation in the right lower quadrant, nondistended, normal active bowel sounds. EXTREMITIES: Normal range of motion. No edema. SKIN: Warm, dry, no rash. NEURO: No focal deficits. Alert and oriented x3. PSYCH: Normal mood and affect. Course Vital Signs Vital signs: Vital Signs Temperature 36.2 C L 11/12/22 00:44 Pulse Rate 105 H 11/12/22 00:44 Respiratory Rate 15 11/12/22 00:44 Blood Pressure 133/80 11/12/22 00:44 Pulse Oximetry 98 11/12/22 00:44 Oxygen Delivery Room Air 11/12/22 00:44 Temperature 36.2 C L 11/12/22 00:44 Pulse Rate 85 11/12/22 05:30 Respiratory Rate 20 11/12/22 05:30 Blood Pressure 101/55 L 11/12/22 05:30 Pulse Oximetry 95 11/12/22 05:30 Oxygen Delivery Room Air 11/12/22 00:44 Medical Decision Making [facility] Narrative Medical decision making narrative: Differential diagnosis includes ovarian torsion, ovarian cyst, appendicitis, Studies were obtained which showed a white blood cell count of 11.6 electrolytes are within normal limits lipase was 67 urinalysis showed 21-[address] scan of the abdomen pelvis showed no evidence of appendicitis Ultrasound showed no evidence of large ovarian cyst the right ovary was not visualized Vital Signs Vital Signs: Vital Signs Temperature 36.2 C L 11/12/22 00:44 Pulse Rate 105 H 11/12/22 00:44 Respiratory Rate 15 11/12/22 00:44 Blood Pressure 133/80 11/12/22 00:44 Pulse Oximetry 98 11/12/22 00:44 Oxygen Delive
== END 2022-11-12 06:25 | disposition home or self-care (01) ==
PROVIDERS: Emergency Provider Emergency Medicine; PCP Family Medicine
DX: R10.31 Right lower quadrant pain (principal); N39.0 Urinary tract infection, site not specified; F98.8 Other specified behavioral and emotional disorders with onset usually occurring in childhood and adolescence; F41.9 Anxiety disorder, unspecified; K21.9 Gastro-esophageal reflux disease without esophagitis
CPT/HCPCS: 36415; 74177; 76856; 80053; 81001; 81025; 83690; 85025; 87077; 87086; 87088; 99284; Q9967

== ENCOUNTER 2023-01-20 20:17 | Emergency (ER) | payer OTHER, MEDICAID, SELFPAY ==
--- NOTE | ~2023-01-20 | CT_ITS ---
Noncontrast CT scan of the cervical spine Technique: Multiple contiguous axial [address] images of the cervical spine were obtained and rec onstructed in 2D sagittal and coronal planes on the acquisition scanner. Dose reduction technique was used on this scan by utilizing automated exposure control, adjustment of the mA and/or kV according to patient size. The dose-length product (DLP) was 445.20 mGy-cm. Clinical History: Pain Findings: No fractures or dislocations. Unremarkable visualized bony structures. The intervertebral disc spaces are preserved. No prevertebral soft tissue swelling. Impression: No fracture or subluxation of the cervical spine. Reviewed, dictated and finalized at location . RIAL RECLAIMER Impression: No fracture or subluxation of the cervical spine.
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
[2023-01-20 20:44] VITALS: BP 127/84; PULSE 113; RESP 16; TEMP 36.5; O2SAT 100
[2023-01-20] MEDS: HYDROcodone/acetaminophen (*CRX) 5-325 MG TABLET 1 TAB PO (22:37)
[2023-01-20 22:45] VITALS: BP 124/79; PULSE 99; RESP 18; O2SAT 100
--- NOTE | 2023-01-21 00:09 | PC.NURSE ---
Report received from STEPHANIE Wiggins. Assumed care of patient at this time.
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
[2023-01-21 00:57] VITALS: BP 118/62; PULSE 98; RESP 17; O2SAT 100
[2023-01-21] MEDS: KETOROLAC (*BKC) 60 MG/2 ML VIAL IM (01:34)
== END 2023-01-21 02:17 | disposition home or self-care (01) ==
PROVIDERS: Emergency Provider Emergency Medicine; PCP Family Medicine
DX: M54.2 Cervicalgia (principal); S09.90XA Unspecified injury of head, initial encounter; V89.2XXA Person injured in unspecified motor-vehicle accident, traffic, initial encounter
CPT/HCPCS: 70450; 72125; 96372; 99284; A9270; J1885

== ENCOUNTER 2023-02-12 14:14 | Outpatient (CLI) | payer OTHER, MEDICAID, SELFPAY ==
[2023-02-12 15:26] LABS: Thyroid Stimulating Hormone 0.913 uIU/mL (0.465-4.680)
== END 2023-02-12 14:15 | disposition home or self-care (01) ==
LOC: ANHLAB 14:16
PROVIDERS: PCP Family Medicine; Visit Provider Nurse Practitioner Family
DX: R06.81 Apnea, not elsewhere classified (principal); Z13.29 Encounter for screening for other suspected endocrine disorder
CPT/HCPCS: 36415; 84443

== ENCOUNTER 2023-02-12 20:36 | Emergency (ER) | payer OTHER, MEDICAID, SELFPAY ==
--- NOTE | ~2023-02-12 | XR_ITS ---
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 RESULT: Lines, tubes, and devices: None. Lungs and pleura: Clear. Cardiomediastinal silhouette: Stable. Other: No acute osseous or upper abdominal finding. IMPRESSION: No acute cardiopulmonary process. Reviewed, dictated and finalized at location K. 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
[2023-02-12 20:52] VITALS: BP 121/82; PULSE 121; RESP 18; TEMP 36.6; O2SAT 100
[2023-02-12 21:35] LABS: Strep Group A RT-PCR NOT DETECTED (Negative)
[2023-02-12 21:46] LABS: Influenza A QL RT-PCR Negative (Negative); Influenza B QL RT-PCR Negative (Negative); SARS-CoV-2 RNA PCR Positive (Negative)
--- NOTE | 2023-02-12 22:46 | PC.NURSE ---
Assumed care of pt from STEPHANIE Arizmendi at this time.
--- NOTE | 2023-02-12 23:12 | ECG_ITS ---
Measurements Intervals [place] Rate: 111 P: 23 [place]: 138 QRS: 58 QRSD: 90 T: 42 QT: 314 QTc: 428 Interpretive Statements SINUS TACHYCARDIA ABNORMAL ECG COMPARED TO ECG 06/18/2022 18:29:27 NO SIGNIFICANT CHANGES Electronically Signed On 02-13-2023 6:23:31 FOOD SERVICE DIRECTOR by Vincent Hendrickson D.O.
--- NOTE | 2023-02-12 23:15 | ED.URI ---
HPI - URI/Sore Throat General Chief Complaint: Upper Respiratory Infection Stated Complaint: flu symptoms Time Seen by Provider: 02/12/23 22:37 History of Present Illness HPI Narrative: 22-year-old female reports for evaluation for sore throat, cough and nasal congestion for the past 4-5 days. Patient states today she began developing intermittent pleuritic chest pain to left anterior chest wall. She denies radiating symptoms, nausea or diaphoresis. She denies known fever but does report chills. She reports a positive sick contact with her mother who recently had COVID. She denies abdominal pain, shortness of breath, dysuria or hematuria, history of BT, swelling or pain in her legs, recent surgeries or hospitalizations. She does report diarrhea few days ago that has since resolved. Related Data Allergies Allergy/AdvReac Type Severity Reaction Status Date / Time No Known Allergies Allergy Verified 02/12/23 13:38 Review of Systems Review of Systems: CONSTITUTIONAL: Denies fever, chills, or sweats. EYES: Denies visual changes, redness, or discharge. ENT: see HPI CARDIOVASCULAR: See HPI RESPIRATORY: see HPI GASTROINTESTINAL: Denies abdominal pain, nausea, vomiting, or diarrhea. GENITOURINARY: Denies dysuria or hematuria. SKIN: Denies rash or itching. MUSCULOSKELETAL: Denies back pain, joint pain, or myalgia. NEUROLOGIC: Denies headache, numbness, or weakness. PSYCHIATRIC: Denies anxiety or depression. [facility] Past Medical History Medical History ADD (attention deficit disorder) without hyperactivity Anxiety BMI 27.0-27.9,adult BMI 28.0-28.9,adult BMI 30.0-30.9,adult GERD (gastroesophageal reflux disease) Palpitations Surgical History Surgical History No significant past surgical history Family History Family History Father Alive and well Hypertension Mother Hypertension Epilepsy Sibling No problems noted. Social History Social History Smoking status: Never smoker Second hand tobacco smoke exposure: No Alcohol intake: never Substance use: never Substance use type: does not use Living arrangements: with family Occupation/Education: other Gender identity (if verbalized by the patient): Female Exam Narrative: GENERAL: Well-appearing, well-nourished, and in no acute distress. patient resting comfortably in exam bed. She is pleasant and conversational. HEAD: Normocephalic, atraumatic. EYES: PERRLA and EOMI. ENT: Nares clear, no rhinorrhea or epistaxis. Mucous membranes moist. Bilateral TM impaction. Canals Otherwise normal. posterior pharynx with mild erythema. No tonsillar hypertrophy or exudates. Uvula midline. No hot potato voice. NECK: Supple. CHEST: Clear to auscultation. No respiratory distress. No tenderness to the chest wall. HEART: Regular rate and rhythm. No murmur heard. Normal peripheral pulses. ABDOMEN: Soft, nontender, nondistended, normal active bowel sounds. No CVA tenderness. EXTREMITIES: Normal range of motion. No edema. Negative Homans bilaterally. SKIN: Warm, dry, no rash. NEURO: No focal deficits. Alert and oriented x3 Course Vital Signs Vital signs: Vital Signs Temperature 97.8 F 02/12/23 20:52 Pulse Rate 121 H 02/12/23 20:52 Respiratory Rate 18 02/12/23 20:52 Blood Pressure 121/82 02/12/23 20:52 Pulse Oximetry 100 02/12/23 20:52 Oxygen Delivery Room Air 02/12/23 20:52 Temperature 97.8 F 02/12/23 20:52 Pulse Rate 106 H 02/13/23 02:36 Respiratory Rate 23 H 02/13/23 02:36 Blood Pressure 124/81 02/13/23 02:17 Pulse Oximetry 97 02/13/23 02:36 Oxygen Delivery Room Air 02/12/23 20:52 MDM - URI/Sore Throat MDM Narrative Medical decision making narrative: 22-year
[2023-02-12] MEDS: SODIUM CHLORIDE 0.9% IV 1,000 ML 999 ML IV CONT (23:45)
[2023-02-13 00:07] LABS: Basophils Percent Auto 0.2 % (0.2-1.2); Eosinophils Percent Auto 0.2 % (0-4.4); Immature Granulocyte Absolute 0.02 K/mm3 (0.00-0.031); Immature Granulocyte Percent A 0.2 % (0-0.5); Lymphocytes Absolute Auto 1.36 K/mm3 (0.9-3.2); Lymphocytes Percent Auto 15.1 % (18.3-44.2); Mean Corpuscular Hemoglobin 29.1 pg (26-34); Mean Corpuscular Volume 83.2 fl (80-100); Mean Platelet Volume 11.1 fl (7.4-10.4); Monocytes Percent Auto 10.8 % (2.6-8.5); Neutrophils Absolute Auto 6.6 K/mm3 (1.3-6.7); Neutrophils Percent Auto 73.5 % (45.5-73.1); Platelet Count Result 267 k/mm3 (150-375); Red Blood Count 4.81 M/mm3 (4.2-5.4); Red Cell Distribution Width 12.3 % (11.5-14.5)
[2023-02-13 00:18] LABS: Partial Thromboplastin Time 28.8 SECONDS (22.3-36.8); Prothrombin Time 13.2 Seconds (11.1-14.7)
[2023-02-13 00:20] LABS: Alanine Aminotransferase 24 U/L (6-35); Albumin Level 3.7 g/dL (3.5-5.1); Alkaline Phosphatase 89 U/L (38-126); Anion Gap 12 mmol/L (8-16); Aspartate Amino Transferase 31 U/L (14-36); Bilirubin,Total 0.5 mg/dL (0.2-1.3); Blood Urea Nitrogen 8 mg/dL (7-17); Calcium 9.2 mg/dL (8.4-10.2); Carbon Dioxide 23 mmol/L (22-30); Chloride 102 mmol/L (98-107); Estimated CRCL calculation 108 ml/min; Estimated Glomerular Filt Rate > 60; Glucose 114 mg/dL (65-110); Lipase 55 U/L (23-300); Potassium 3.6 mmol/L (3.4-5.0); Sodium 137 mmol/L (137-145)
[2023-02-13 00:32] LABS: NT Pro B Type Natriuretic Pept < 20 pg/mL (19.9-100); Troponin I < 0.012 ng/mL (0.000-0.034)
[2023-02-13 00:33] LABS: SPREG INTERNAL CONTROL Positive; Serum Qual hCG Negative
[2023-02-13 00:34] LABS: D Dimer < 0.27 ug/mL (<0.48)
[2023-02-13 00:36] LABS: Monoscreen Negative (Negative); Negative Monotest Control Negative (Negative); Positive Monotest Control Positive (Positive)
[2023-02-13] MEDS: SODIUM CHLORIDE 0.9% IV 1,000 ML 999 ML IV CONT (01:16)
[2023-02-13] MEDS: KETOROLAC 30 MG/ML VIAL (*BKC) IV PUSH (01:16)
[2023-02-13] MEDS: LORazepam INJ (*CRX) 2 MG/ML VIAL 0.5 MG IV PUSH ×2 (01:18→02:05)
[2023-02-13 01:20] VITALS: BP 119/70; PULSE 132; RESP 17; O2SAT 100
[2023-02-13 02:17] VITALS: BP 124/81; PULSE 111; RESP 19; O2SAT 97
[2023-02-13 02:36] VITALS: PULSE 106; RESP 23; O2SAT 97
== END 2023-02-13 02:45 | disposition home or self-care (01) ==
PROVIDERS: Emergency Medicine; Emergency Provider Physician Assistant; PCP Family Medicine
DX: U07.1 COVID-19 (principal); R07.89 Other chest pain; K21.9 Gastro-esophageal reflux disease without esophagitis; R00.0 Tachycardia, unspecified
CPT/HCPCS: 36415; 71046; 80053; 83690; 83880; 84443; 84484; 84703; 85025; 85380; 85610; 85730; 86308; 87636; 87651; 93005; 96361; 96374; 96375; 99284; J1885; J2060; J7030

== ENCOUNTER 2023-03-15 09:12 | Outpatient (CLI) | payer OTHER, MEDICAID, SELFPAY ==
--- NOTE | 2023-04-01 16:41 | WPDHOMESLEEP ---
Sleep Study - Home Unattended Date of Study: 03/15/23 Ordering Provider: James Pierce MD Interpreting Provider: Sofie Avery, DO Home Sleep Study Type: Apnea Link Air Height: 1.6 m Weight: 78.471 kg Body Mass Index: 30.6 Neck Circumference (inches): 16.5 [place]: 13 Reason for Sleep Study Nocturnal gasping Sleep History The patient is a 22-year-old female with ADD, anxiety, GERD, seasonal allergies and palpitations that had a sleep study ordered by her primary care for evaluation of sleep apnea. The patient occasionally awakens from sleep short of breath. She frequently awakens at night with heartburn, belching or cough. She denies snoring. She constantly has trouble sleeping when she has a cold. She occasionally wakes up gasping for air throughout the night. She rarely has breathing problems at night observed by herself or others. She denies sweating excessively at night. She rarely has heart palpitations or irregular heartbeats during the night. She constantly falls asleep during the day but never while driving. She denies sleep paralysis, cataplexy and hypnagogic / hypnopompic hallucinations. She constantly has trouble at school or work due to sleepiness. She denies feeling afraid of going to sleep. She constantly has nightmares. She rarely remembers her dreams. She denies having thoughts racing through her mind. She denies feeling sad or depressed. She constantly has anxiety. She denies having muscular tension. She denies noticing parts of her body jerk. She denies kicking during the night. She denies having crawling and aching feelings in her legs and denies having leg pain during the night. She denies grinding her teeth during sleep and denies awakening with morning jaw pain. She denies being bothered by pain during the day and denies being awakened by pain during the night. She denies waking up feeling stiff in the morning. She denies waking up with sore or achy muscles. She denies waking up with pain in the neck, spine and other joints. She does not have a consistent sleep-wake schedule. It can take her 5-10 minutes to fall asleep. She wakes up 1-3 times throughout the night but is able to fall back asleep within 5-15 minutes. She typically gets 10 hours of sleep per night. She currently lives with her parents, and children. She does have a rotating work shift schedule. She will consume caffeinated beverages within 2 hours of bedtime. She denies engaging in physical exercise before bedtime. She will watch television before falling asleep. She will take naps in the afternoon or the evening and they are refreshing. She will consume caffeinated beverages throughout the day. She denies tobacco, alcohol and recreational drug use. [facility] Past Medical History Medical History ADD (attention deficit disorder) without hyperactivity Anxiety BMI 27.0-27.9,adult BMI 28.0-28.9,adult BMI 30.0-30.9,adult GERD (gastroesophageal reflux disease) Palpitations Surgical History Surgical History No significant past surgical history Family History Family History Father Alive and well Hypertension Mother Hypertension Epilepsy Sibling No problems noted. Social History Social History Smoking status: Never smoker Second hand tobacco smoke exposure: No Alcohol intake: never Substance use: never Substance use type: does not use Living arrangements: with family Occupation/Education: other Gender identity (if verbalized by the patient): Female Medications Home Medications Medication Instructions Recorded Confirmed Type benzonatate 200 mg capsule 200 mg PO BID PRN cough #14 caps 02/13/23 Rx fluticasone propionate 50 1 spray intranasal Q
[2023-04-01 16:48] VITALS: BMI 30.6
== END 2023-03-21 15:31 | disposition home or self-care (01) ==
LOC: ANHCSM 09:13
PROVIDERS: PCP Family Medicine; Visit Provider Family Medicine
DX: R40.0 Somnolence (principal); F39 Unspecified mood [affective] disorder
CPT/HCPCS: 95806

== ENCOUNTER 2023-04-22 09:49 | Outpatient (CLI) | payer OTHER, MEDICAID, SELFPAY ==
[2023-05-13 17:46] VITALS: BMI 31.1
--- NOTE | 2023-05-13 17:46 | WPDSLEEPSTUD ---
Sleep Study Date of Study: 04/22/23 Ordering Provider: James Pierce MD Interpreting Physician: Sofie Avery, Sleep Study Type: Polysomnogram Height: 1.57 m Weight: 77.111 kg Body Mass Index: 31.1 Neck Circumference (inches): 17 [place]: 13 Reason for Sleep Study The patient had a Apnea Link home sleep test on 03/15/2023 that showed an overall AHI of 1.4 with desaturation down to 91%. [place] Sleepiness Scale of 13/24. Sleep History The patient is a 22-year-old female with ADD, anxiety, GERD, seasonal allergies and palpitations that had a sleep study ordered by her primary care for evaluation of sleep apnea.? The patient occasionally awakens from sleep short of breath.? She frequently awakens at night with heartburn, belching or cough.? She denies snoring.? She constantly has trouble sleeping when she has a cold.? She occasionally wakes up gasping for air throughout the night.? She rarely has breathing problems at night observed by herself or others.? She denies sweating excessively at night.? She rarely has heart palpitations or irregular heartbeats during the night.? She constantly falls asleep during the day but never while driving.? She denies sleep paralysis, cataplexy and hypnagogic / hypnopompic hallucinations.? She constantly has trouble at school or work due to sleepiness.? She denies feeling afraid of going to sleep.? She constantly has nightmares.? She rarely remembers her dreams.? She denies having thoughts racing through her mind.? She denies feeling sad or depressed.??She constantly has anxiety.? She denies having muscular tension.? She denies noticing parts of her body jerk.? She denies kicking during the night.? She denies having crawling and aching feelings in her legs and denies having leg pain during the night.? She denies grinding her teeth during sleep and denies awakening with morning jaw pain.? She denies being bothered by pain during the day and denies being awakened by pain during the night.? She denies waking up feeling stiff in the morning.? She denies waking up with sore or achy muscles.? She denies waking up with pain in the neck, spine and other joints.? She does not have a consistent sleep-wake schedule.? It can take her 5-10 minutes to fall asleep.? She wakes up 1-3 times throughout the night but is able to fall back asleep within 5-15 minutes.? She typically gets 10 hours of sleep per night.? She currently lives with her parents, and children.? She does have a rotating work shift schedule.? She will consume caffeinated beverages within 2 hours of bedtime.? She denies engaging in physical exercise before bedtime.? She will watch television before falling asleep.? She will take naps in the afternoon or the evening and they are refreshing.? She will consume caffeinated beverages throughout the day.? She denies tobacco, alcohol and recreational drug use. [facility] Past Medical History Medical History ADD (attention deficit disorder) without hyperactivity Anxiety BMI 27.0-27.9,adult BMI 28.0-28.9,adult BMI 30.0-30.9,adult GERD (gastroesophageal reflux disease) Palpitations Surgical History Surgical History No significant past surgical history Family History Family History Father Alive and well Hypertension Mother Hypertension Epilepsy Sibling No problems noted. Social History Social History Smoking status: Never smoker Second hand tobacco smoke exposure: No Alcohol intake: never Substance use: never Substance use type: does not use Living arrangements: with family Occupation/Education: other Gender identity (if verbalized by the patient): Female Medications Home Medications Medication Instructions Recorded Confirmed Type gosia
== END 2023-04-23 06:39 | disposition home or self-care (01) ==
PROVIDERS: PCP Family Medicine; Visit Provider Family Medicine
DX: G47.33 Obstructive sleep apnea (adult) (pediatric) (principal); R40.0 Somnolence; Z68.30 Body mass index [BMI] 30.0-30.9, adult; R06.83 Snoring
CPT/HCPCS: 95810

== ENCOUNTER 2023-06-14 14:33 | Outpatient (CLI) | payer OTHER, MEDICAID, SELFPAY ==
--- NOTE | ~2023-06-14 | MR_ITS ---
EXAMINATION: MR brain/brain stem wo con DATE: 06/14/2023 15:08 INDICATION: Migraine, unspecified, not intractable. TECHNIQUE: Magnetic resonance imaging (MRI) of the brain and brainstem was performed without intraven ous contrast. COMPARISON: Head CT 01/20/2023 FINDINGS: There is no intracranial hemorrhage, acute infarction, or abnormal intracranial mass lesion . The ventricles are normal in size. The paranasal sinuses are clear. The orbits are normal. The mast oid air cells are normal. IMPRESSION: 1. Normal brain. Reviewed, dictated and finalized at location A. IMPRESSION: 1. Normal brain.
== END 2023-06-14 14:34 | disposition home or self-care (01) ==
LOC: ANHIMG 14:36
PROVIDERS: PCP Family Medicine; Visit Provider Nurse Practitioner Family
DX: G43.909 Migraine, unspecified, not intractable, without status migrainosus (principal); G93.0 Cerebral cysts
CPT/HCPCS: 70551

== ENCOUNTER 2024-10-10 19:36 | Emergency (ER) | payer OTHER, SELFPAY ==
--- NOTE | ~2024-10-10 | CT_ITS ---
CLINICAL INDICATION: Left lower quadrant pain COMPARISON: 11/12/2022. Reference is also made to multiple pelvic ultrasounds performed most recently on 11/12/2022 and dating back to 10/16/2022 (demonstrating a 6 cm hemorrhagic cyst within the right ovar y). TECHNIQUE: Multiple contiguous axial images of the abdomen and pelvis were performed following the ad ministration of with 100 mL Omnipaque-350 intravenous contrast The dose-length product (DLP) was 432.35 mGy-cm. Automated exposure control and iterative reconstruction technique were employed. FINDINGS/OBSERVATIONS: Visualized lower thorax: The bilateral lung bases are clear. The heart is of normal size, without pericardial effusion. Small hiatal hernia is present. Liver: The liver demonstrates homogeneous enhancement and is not enlarged. Gallbladder and biliary system: The gallbladder is only minimally distended, and otherwise unremarkable. Pancreas: The pancreas enhances homogeneously without ductal dilatation. Spleen: The spleen enhances homogeneously and is not enlarged. Kidneys: The bilateral kidneys enhance symmetrically without hydronephrosis or renal calculi. Adrenal glands: Unremarkable. Gastrointestinal tract: Fecal stasis within the cecum. Appendix: The air-filled appendix is of normal caliber (axial series, images 54 through 70). Vasculature: Unremarkable. Lymph nodes: No pathologically enlarged or morphologically suspicious lymph nodes within the retroperitoneum or at the root of the mesentery. Pelvic structures: The bladder is only minimally distended, and otherwise unremarkable. The uterus is anteverted and anteflexed. Involuting bilobed cyst within the left hemipelvis measuring 7 and 5 mm, respectively. Redemonstration of a right ovarian cyst measuring 4.3 x 5.0 x 5.3 cm (anterior to posterior x medial to lateral x cranial to caudal dimension). Body wall and musculoskeletal: Small fat-containing umbilical hernia. No significant degenerative disease within the lower thoracic or lumbosacral spine. IMPRESSION: Involuting subcentimeter cyst within the left ovary. 5.3 cm focus of decreased attenuation within the right ovary, within the deep pelvis for which pelvic ultrasound may be performed for confirmation. No diverticulitis. Reviewed, dictated and finalized at location A. IMPRESSION: Involuting subcentimeter cyst within the left ovary. 5.3 cm focus of decreased attenuation within the right ovary, within the deep p harvey for which pelvic ultrasound may be performed for confirmation. No diverticulitis.
--- OUTSIDE RECORDS SUMMARY | 2024-10-10 19:38 | XMS_ITS | Continuity of Care Document ---
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 [address] , [address], [place], [place], [facility], . tel:[phone] [facility], [id number] [place] [address] [address], [place], [place], [id number], [place] tel:[phone] [facility] No Information 2-200 9 Marvin OD Juan C. [address] , [address], [place], [place], [facility], . tel:[phone] [facility], [address] [place] [address] [address], [place], [place], [id number], tel:[phone] [facility] No Information 5200 8 Marvin OD Juan C. [address] , [address], [place], [address], [place]. tel:[phone] Family History Family Member Type Diagnosis Age At Onset No Information Payers Payer name Insurance type Covered republican ID Authoriza tion(s) [employer] [place] Out [place] [id number] Medicaid [facility] [id number] Social History Type Description Quantity Date Captured [...]
--- OUTSIDE RECORDS SUMMARY | 2024-10-10 19:38 | XMS_ITS | Data Portability ---
Author Organization [facility] [place] Address [address] [place] [address] [place] [address] Care Team Providers Care Cota Name Role Phone GUILLERMO WAN Primary Care Provider [phone] Assessment Encounter Date Assessment Date Assessment LastModified by Organization Details LastModified Time 11/06/2022 11/06/2022 Annual gynecological exam performed. Patient will come back in a year unless there are new symptoms. [email or web address] Not available 11/06/2022 14:43:49 Plan of Treatment Reminders Order Date Submit Date Provider Last Modified By Organization Details Last Modified Time Details Appointments None recorded. Lab None recorded. Referral None recorded. Procedures None recorded. Surgeries None recorded. Imaging US, transvagina l 2022 023 [email or web address] [address], [address], [place], [address], 3 21:17:18 Medication Orders Junel Fe 24 1 mg-20 mcg (24)/75 mg (4) tablet 2022 023 JUAN [facility] [address] , [place], [address], 3 15:05:34 fluconazole 150 mg tablet 2022 023 [email or web address] 1 [facility] [address] , [place], [address], 3 14:45:18 nystatin-tr iamcinolone 100,000 unit/gram-0 .1 % topical ointment 2022 023 [email or web address] 1 [facility] [address] [address], [place], [address], 3 14:45:20 Patient TargetsNo targets recorded. Patient InstructionsNo instructions recorded. Reason for Referral None Reported. 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 Elect brigid lund by Ammon Maldonado MD on 2022 at 4:58 PM ----- ----- ----- ----- ----- ----- ----- ----- ----- ----- ----- ----- ----- ----- ----- ----- ----- ---- HPV RESUL TS: HPV mRNA E6/E7 : No HPV mRNA Detec wilman NOTE: This high risk HPV mRNA assay detec ts fourt een high- risk HPV types (16, 18, 31, 33, 35, 39, 45, 51, 52, 56, 58, 59, 66, 68) witho ut diffe renti ation . COMME NT: This speci men was revie wed by a Cytot echno logis t and/o r Patho logis t (as indic ated in this repor t) after evalu ation using the Thinp rep Imagi ng Syste m. CLINI HENRY INFOR MATIO N: Menst rual Statu s: LMP (if appli cable ): Clini henry Histo ry/Pr eviou s Pap: Type of Neopl mo (if appli cable ): Signi fican t Clini henry Findi ngs: Other Histo ry: Hormo lily (if appli cable ): BOBBY STED FOLLO W-UP: Follo w up as warra nted, based on curre nt guide lines and indiv idual patie nt consi derat ions. Not Available [facility] (Lab) [address], [place], [address], 11/09/2022 14:21:47 11/07/19 23 11/06/2022 TRICH OMONA S VAGIN VU (RRNA ) trichomonas vaginalis ribosomal RNA (rrna) Negati ve negati ve Not Available [facility] (Lab) [address], [place], [address], 11/09/2022 14:21:48 11/07/19 23 11/06/2022 CT/GC (TYLER) , THINP REP VIAL chlamydia trachomatis, PCR Negati ve negati ve Not Available [facility] (Lab) [address] [place], [address], 11/09/2022 14:21:48 11/07/19 23 11/06/2022 CT/GC (TYLER) , THINP REP VIAL neisseria gonorrhoeae, PCR Negati ve negati ve Not Available [facility] (Lab) [address], [place], [address], 11/09/2022 14:21:48 12/05/19 23 12/04/2022 US, trans vagin al No observ [facility]ion [facility] [address], [place], [address], 12/04/2022 16:30:09 12/05/19 23 12/04/2022 US, trans vagin al No observ ation record ed. JUAN [address], [place], [address], 12/06/2022 01:27:23 Result Notes None recorded. Procedures Surgical History Date Name Laterality Status Provider Name and Address Organization Details Recorded Time 11/07/19 Date of Last Pap Smear completed Reyna Camejo [facility] 11/06/2022 16:21:23 08/30/19 09 tonsillectomy and adenoidectomy completed Lisa Del Valle [facility] 10/23/2022 11:43:05 Imaging Results None recorded. Procedure Notes None recorded. Medical Equipment None Reported. Allergies No known drug allergies Medications Name Sig Start Date Stop Date Status Note LastModified by Organization Details LastModified Time ketoconazol e 2 % shampoo SHAMPOO SCALP TWICE A WEEK FOR 5 MINUTES, THEN RINSE 10/23 completed Not Available Not Available Not Available fluconazole 150 mg tablet TAKE 1 TABLET BY MOUTH NOW THEN REPEAT IN 7 DAYS 11/06 completed Not Available Not Available Not Available tretinoin 0.025 % topical cream APPLY AT BEDTIME 10/23 completed Not Available Not Available Not Available nystatin-tr iamcinolone 100,000 unit/gram-0 .1 % topical ointment APPLY OINTMENT TOPICALLY TO AFFECTED AREA TWICE DAILY FOR 7 DAYS 11/06 completed Not Available Not Available Not Available cephalexin 500 mg capsule TAKE 1 CAPSULE BY MOUTH EVERY 12 HOURS FOR 7 DAYS active Not Available Not Available No t Available tacrolimus 0.1 % topical ointment RUB IN WELL TWICE A DAY TO INVOLVED AREAS 10/23 completed Not Available Not Available Not Available hydroxyzine HCl 25 mg tablet TAKE 1 TO 2 TABLETS BY MOUTH AT BEDTIME NEEDED 10/23 completed Not Available Not Available Not Available metoprolol succinate ER 25 mg tablet,exte nded release 24 hr TAKE 1/2 (ONE-HALF ) TABLET BY MOUTH ONCE DAILY 10/23 completed Not Available Not Available Not Available hydrocortis one 2.5 % topical ointment APPLY AND RUB IN WELL TO INVOLVED AREAS OF EYELIDS AND ARMS TWICE A DAY UNTIL CLEAR 10/23 completed Not Available Not Available Not Available clobetasol 0.05 % scalp solution APPLY TOPICALLY ONCE DAILY TO INVOLVED AREAS OF SCALP UNTIL CLEAR 10/23 completed Not Available Not Available Not Available cefdinir 300 mg capsule TAKE 1 CAPSULE BY MOUTH EVERY 12 HOURS 10/23 completed Not Available Not Available Not Available naproxen 500 mg tablet TAKE 1 TABLET BY MOUTH TWICE DAILY 10/23 completed Not Available Not Available Not Available clindamycin 1 % lotion APPLY LOTION TOPICALLY EACH MORNING 10/23 completed Not Available Not Available Not Available Wing 24 Fe 1 mg-20 mcg (24)/75 mg (4) tablet TAKE 1 TABLET BY MOUTH ONCE DAILY active Not Available Not Available No t Available Vitals Date Recorded Body height Body mass index (BMI) Body weight Systolic And Diastolic Provider Name and Address Organization Details Last Updated DateTime 10/23/2022 161.93 cm 28 kg/m2 45028.96 g 127/85 mm[Hg] Lisa Del Valle [facility] 10/23/2022 11:38:55 Date Recorded Body height Body mass index (BMI) Body weight Systolic And Diastolic Provider Name and Address Organization Details Last Updated DateTime 11/06/2022 161.93 cm 28.4 kg/m2 99421.15 g 120/77 mm[Hg] Reyna Camejo [facility] 11/06/2022 14:44:40 Social History Question Answer Notes LastModified by Organizat ion Details LastModified Time Tobacco Smoking Status Never Smoker Martina tanner [facility] 12/04/2022 14:28:03 How Many Years Have You Consumed Alcohol? 0 [email or web address] Information not available 11/06/2022 Are You Blind Or Do You Have Difficulty Seeing? No Information n ot available 10/23/2022 What Is Your Level Of Caffeine Consumption? Occasional [email or web address] Information not available 11/06/2022 How Much Tobacco Do You Chew? None [email or web address] Information not available 11/06/2022 In The 14 Days Before Symptom Onset, Have You Had Close Contact With A Laboratory-confirm ed COVID-19 While That Case Was Ill? No [email or web address] Information n ot available 11/06/2022 In The 14 Days Before Symptom Onset, Have You Had Close Contact With A Person Who Is Under Investigation For COVID-19 While That Person Was Ill? No [email or web address] Information not available 11/06/2022 Have You Been To An Area Known To Be High Risk For COVID-19? No [email or web address] Information not available 11/06/2022 Are You Deaf Or Do You Have Serious Difficulty Hearing? No Information not available 10/23/2022 What Type Of Diet Are You Following? REGULAR [email or web address] Information n ot available 11/06/2022 What Is The Highest Grade Or Level Of School You Have Completed Or The Highest Degree You Have Received? [id number] [email or web address] Information not available 11/06/2022 Are There Any Guns Present In Your Home? Yes [email or web address] Information not available 11/06/2022 Do You Use Protection During Sex? No [email or web address] Information not available 11/06/2022 Do You Use Your Seat Belt Or Car Seat Routinely? Yes [email or web address] Information not available 11/06/2022 Do You Have Smoke And Carbon Monoxide Detectors In Your Home? Yes [email or web address] Information not available 11/06/2022 At What Age Did You Start Smoking Tobacco? 0 [email or web address] Information not available 11/06/2022 How Much Tobacco Do You Smoke? No [email or web address] Information not available 11/06/2022 Do You Use Sunscreen Routinely? No Information not available 11/06/2022 How Many Years Have You Smoked Tobacco? 0 Information not available 11/06/2022 Have You Used IV Drugs? No [email or web address] Information not available 11/06/2022 Do You Have Difficulty Walking Or Climbing Stairs? No Information not available 12/04/2022 Sex: Unknown Functional Status Question Answer Note LastModified by Organizat ion Details LastModified Time Do you use any illicit or recreational drugs? No Information not available 11/06/2022 What is your level of alcohol consumption? None Information not available 10/23/2022 Are you able to walk? [email or web address] Information not available 10/23/2022 Are you able to care for yourself independently? Yes [email or web address] Information not available 12/04/2022 What is your occupation? Unemployed [email or web address] Information not available 11/06/2022 Do you have difficulty dressing, bathing, grooming, or toileting? No [email or web address] Information not available 12/04/2022 What is your exercise level? Occasional [email or web address] Information not available 11/06/2022 Mental Status Question Answer Note LastModified by Organization D etails LastModified Time Do you feel stressed (tense, restless, nervous, or anxious, or unable to sleep at night)? [id number] [email or web address] Information not available 11/06/2022 Family History Relationship Description Onset Age of this Age Resolved Age Notes LastModified by Organization Details LastModified Time Maternal Grandfather Anemia [email or web address] Not available 11:40:23 Maternal Grandfather Diabetes mellitus matera nl great grandf ather [email or web address] Not available 10/23/2022 11:41:40 Maternal Grandfather Essential hypertension [email or web address] Not available 14:28:03 Maternal Grandmother Malignant tumor of breast matern al great grandm other vschroedter Not available 10/23/2022 11:40:47 Maternal Grandmother Essential hypertension [email or web address] Not available 14:28:03 Paternal Grandfather Malignant tumor of colon [email or web address] Not available 10/2022 11:40:59 Paternal Grandfather Essential hypertension [email or web address] Not available 14:28:03 Mother Essential hypertension [email or web address] Not available 14:28:03 Mother Seizure disorder [email or web address] Not available 2022 14:28:03 Father Essential hypertension [email or web address] Not available 14:28:03 Paternal Grandmother Essential hypertension [email or web address] Not available 14:28:03 Medical History Condition Response Allergies (Food, seasonal, environmental ) N Other N Drug/Latex Allergies/Reactions N Breast Cancer N Blood Transfusion N Dermatologic Disorders N Lung Disease N Defects or Inherited Disease N Breast Problem N Gestational Diabetes N Hematologic disorders N Anesthesia Complications N History of STI N Deep Vein Thrombosis N Polycystic ovary syndrome N Anxiety Disorder N Autoimmune disease N Arthritis N Polyps N Infertility N History of abnormal pap N Acid Reflux (GERD) N Cancer N Varicosities N Stroke N Neurologic/Epilepsy N Endometriosis N High Cholesterol N Headaches Y Fibromyalgia N Kidney Disease N Heart Problems N Thyroid Problems N Kidney or Bladder Problems N GI Problems N Eating Disorder N Anemia N Art (IVF or FET) N Psychiatric Illness N Ovarian Cancer N Diabetes N Pulmonary (TB, Asthma) N Hepatitis/Liver Disease N No Past Medical History N Eczema N Urinary Tract Infection N Abuse/Domestic Violence N Asthma N Trauma/Violence N Depression/ depression N Heart Disease N Pre-Eclampsia N Hypertension N Osteoporosis N Thrombophilias N Gynecological History Statement/Question Response Flow Heavy Date of LMP 11/03/2022 On BCP's at Conception? N N Was last menstrual period normal Y STIs/STDs N HPV Vaccine Y Duration of Flow (days) 7 Current Control Method None Are cycles usually normal Y Sexually Active? Y Menses Monthly Y Age of first menstrual cycle 12 Date of Last Pap Smear 11/06/2022 Sexual Problems? N LMP Approximate N Obstetrics History GPAL:G 0 P 0 0 0 0 Type Value Living 0 Total 0 Past Encounters Encounter ID Performer Location Encounter Start Date Encounter Closed Date Diagnosis/Indication Diagnosis SNOMED-CT Code Diagnosis ICD10 Code Diagnosis Note [id number] IFEANYI Garcia [place] [address] [address] 10/23/2022 10:47:50 10/23/2022 12:06:34 Pain in pelvis 64002673 R10.2 This patient is a 22 -year-old female with pelvic pain. We have agreed to complete the evaluation with pelvic ultrasound . The patient will return after the pelvic ultrasound to discuss those findings and to develop a treatment plan. A comprehens keyla history and physical exam was performed today. We spent over 25 minutes face-to-fa ce. The patient was given precaution s. She will contact clinic if pelvic pain increases in frequency or intensity. Also notify clinic of any new symptoms associated with pelvic pain. She does not appear to have an acute pelvic infection today, but was asked to contact us Immediatel y with nausea, vomiting, fever, chills. records request sent, need to review recent u/sdiscuss ed once u/s is reviewed can provide further recommenda tions on any f/u needed (repeat u/s in 6-8 weeks vs MD consult). Her pain has mostly resolved at this time.suspe ct yeast on exam - vaginitis / STI panel sentrx sent, R/B/A discussedv ulvar care guidelines reviewedBC options discussed - declined at this timeencour aged to schedule WWE/due for primary pap Time spent in visit is a total of 30 mins with at least 50% of visit consisting of counseling and review of plan of care. Vaginitis 42421720 N76.0 Venereal d isease screening 635021004 Z11.3 Cyst of ovary 16516669 N 83.209 Contracept ion care management 205921046 Z30.9 [id number] IFEANYI Garcia [place] [address] [address] 11/06/2022 14:20:07 11/06/2022 15:16:55 Gynecologic examination 51895326 Z01.419 Take Calcium with Vitamin D daily if not receiving in daily diet. It is strongly advised to have an annual flu shot and up can obtain at most pharmacies . If you have not had a TDap shot in the last 10 years you should obtain one as well. Discussed with patient & provided with informatio n regarding Gardisil vaccine to prevent the 4 strains for HPV that cause cervical cancer if under age 26. Encourage safe sexual practices, to use condoms and limit partners if not already in a monogamous relationsh ip. Do monthly self breast exams. Have mammogram yearly or every other year depending on family history. BRCA testing is now available for patients with strong genetic history of female cancer. If interested contact the office. Engage in daily exercise of low impact aerobic exercise 45-60 minutes 4-5 times weekly. Avoid tobacco and illicit drugs as well as using moderation with alcohol intake less than 1-2 8 oz beverages daily. This lifestyle behavior pattern will lead to less health conditions and longer life span. If BMI greater than 25 weight watchers or dietary consult advised. Patient received above instructio ns, and questions have been answered. If you have any questions please call or respond to this email. Patient was made aware of the patient portal and may obtain a paper copy of today's plan if desired. WWEBC - condoms Discussed all control options in great detail. Pt would like to start ocp. She is aware of the risks and benefits. She does not have any medical condition that is contraindi cated with the use of estrogen containing control. Pt will start her pills on the first day following the start of her period. She is aware it is not effective for control the first month. She is also aware of the importance of taking at the same time every day. Encouraged use of condoms as the pill does not protect against STD's. Will return in 3 months for med check. Consent was read and signed. Pt verbalized understand ing.rx sentprimar y pap collectedS TI testing declinedUT D with [facility] for med check in 3-4 months Contracept ion care management [id number] Z30.9 Cyst of ovary 16707317 N 83.209 5.7cm right ovarian cyst, seen on u/s 3pa tient feeling well today - no symptoms, repeat u/s is scheduled for f/uprecaut ions reviewed with patient [id number] Arnold Mayes MD [place] [address] [address] 12/04/2022 14:27:50 12/04/2022 14:55:56 Cyst of right ovary [id number] 0421090 N83.201 Health Concerns Section Related Observation LastModified by Organization Detai ls LastModified Time None Recorded Concern Status LastModified by Organization Details LastModified Time None Recorded Advance Directives Directive None Recorded Payers Insurance Date Sequence Insurance Name Policy Number Policy Dominguez Covered Member ID Dominguez Member ID Guarantor Name 12/03/2022 1 [employer] [id number] Иван Raza [id number] Иван Raza 12/03/2022 2 [place] [employer] [place] [employer] Shahida Raza [id number] Иван Raza Notes Date Note Type Note Provider Name and Address Organization Details Recorded Time 10/23/2022 text/html Beer-Pelvic PainReported by Patient 22yo R5svisrzhm to discuss pelvic pain/ovarian cystexperienced intense pelvic pain on 10/16/22, went to [facility]. Had an u/s performed - Found to have right ovarian cyst and treated for a UTI. Told to f/u with gyne and that cyst should resolve on its own. Pain has since mostly resolved. Feels a slight cramping sensation every now and then on the right side. Vaginal d/c and itching ever since she finished the antibiotic for the UTI.SA, uses condoms for BCnormal monthly periodsneg n/v/fneg urinary symptoms IFEANYI Garcia [address], [place], [address], [facility] 10/23/2022 12:04:32 11/06/2022 text/html Annual GYNReport ed by Patient IFEANYI Garcia [address], [place], [address], [place] [facility] 11/06/2022 15:06:17 OBGyn Episode No OBEpisode recorded.
--- OUTSIDE RECORDS SUMMARY | 2024-10-10 19:38 | XMS_ITS | Clinical Summary ---
Author Organization [facility] Address [address] [place] [address] Care Team Providers Care Potato Chip Maker Name Role Phone Unavailable Primary Care Provider Unavailabl e Source Comments [facility],non-owned Affiliates and Associated Physician Practices is amultiple site organization consisting of ambulatory clinics and hospital sitesin [place], [place], [place] and [place]. This disclosure is being madepursuant to the Care Everywhere program and may not contain all information available regarding this patient. Last updated 17.[facility] Allergies No known active allergies Medications * Be aware that medications may not be up to date on this document. Alwaysverify current medications with the patient. guanFACINE (TENEX) 2 MG tablet Take 4 mg by mouth at bedtime Active Melatonin 5 MG Activ e loratadine (CLARITIN) 10 MG tablet Take 10 mg by mouth once daily Active Cholecalciferol (VITAMIN D-3) 1000 UNITS Active omeprazole (PRILOSEC) 20 MG capsule Take 20 mg by mouth daily before breakfast Active Active Problems Problem Noted Date Diagnosed Date Fatigue 07/07/2015 Arachnoid cyst 07/07/2015 Chronic fatigue Staring spell Family History Medical History Relation Name Comments Colon polyps Father Migraine Father Stroke Maternal Grandfather Migraine Mother Seizures Mother Cancer - Colon Paternal Grandfather Cancer - Esophageal Paternal Grandmother Relation Name Status Comments Father Maternal Grandfather Mother Paternal Grandfather Paternal Grandmother Social History Tobacco Use Types Packs/Day Years Used Date Smoking Tobacco: Never Smokeless Tobacco: Never Comments No Sex and Gender Information Value Date Recorded Sex Assigned at Not on file 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 Gender Identity Not on file Sexual Orientation Not on file Last Filed Vital Signs Vital Sign Reading Time Taken Comments Blood Pressure 100/57 06/27/2018 12:45 PM CDT Pulse 75 06/27/2018 12:45 PM CDT Temperature 36.4 C (97.5 F) 06/27/2018 12:12 PM CDT Respiratory Rate 15 06/27/2018 12:45 PM CDT Oxygen Saturation 100% 06/27/2018 12:45 PM CDT Inhaled Oxygen Concentration - - Weight 60.5 kg (133 lb 6.1 oz) 06/27/2018 10:55 AM CDT Height 162.4 cm (5' 3.94) 06/27/2018 10:55 AM C DT Body Mass Index 22.94 06/27/2018 10:55 AM CDT Plan of Treatment Health Maintenance Due Date Last Done Comments HIV SCREENING 2016 HPV VACCINE (1 - 3-dose series) 2016 CHLAMYDIA/GONORRHEA SCREENING 2017 MENINGOCOCCAL (Group B) VACC INE SHARED DECISION-MAKING (1 of 2 - Standard) 2017 HEPATITIS C SCREENING 07/14/2019 DTAP/TDAP/TD VACCINES (1 - Tdap) 2020 HEPATITIS B VACCINE (1 of 3 - 19+ 3-dose series) 2020 COVID-19 VACCINE (1 - 2023-2 5 season) 2023 DEPRESSION SCREENING 03/18/2024 INFLUENZA VACCINE (#1) 2024 ZOSTER VACCINE (1 of 2) 07/19/2051 HIB VACCINE Aged Out No longer eligi ble based on patient's age to complete this topic MENINGOCOCCAL GROUPS A/C/Y/W VACCINE Aged Out No longer eligible b ased on patient's age to complete this topic PNEUMOCOCCAL VACCINE Aged Out No long er eligible based on patient's age to complete this topic Insurance [facility] [place] [facility] MEDICA[facility] - OUT OF STATE
[2024-10-10 19:48] VITALS: BP 119/78; PULSE 121; RESP 20; TEMP 37.1; O2SAT 100
[2024-10-10 20:42] LABS: BEDSIDEPREGUCG Negative (Negative)
[2024-10-10 20:45] LABS: Add Urine Microscopic? YES; Appearance Urine Clear (Clear); Glucose Urine UA Negative (Negative); Leukocyte Esterase Ur Trace LEU/UL (Negative); Nitrate Urine Negative (Negative); Non Pathogenic Casts 0-2; Specific Grav Ur 1.006 (1.001-1.035)
--- OUTSIDE RECORDS SUMMARY | 2024-10-10 22:56 | XMS_ITS | Continuity of Care Document ---
Author Organization [facility] Address [address] [place] [address] Phone Care Team Providers Care Service Planner Name Role Phone Marvin OD, Juan C Unavailable Unavailable Procedures Procedure Date Eye Exam & Treatment Refraction Eye Exam & Treatment Refraction Eye Exam, New Patient Refraction Advance Directives Directive Yes / No Effective Date File Name No Information Encounters Encounter Description Practice Location Reason(s) For Visit Diagnoses Date Provider Providers Copied on Encounter [facility], [address] [place] [address] [address], [place], [place], [id number], tel:[phone] [facility] No Information 6-201 0 Marvin OD Juan C. [address] [facility] [address] [facility] [address] [address] , [address], [place], [place], [facility], . tel:[phone] [facility], [id number] [place] [address] [address], [place], [place], [id number], [place] tel:[phone] [facility] No Information 2-200 9 Marvin OD Juan C. [address] [facility] , [address], [place], [place], [facility], . tel:[phone] [facility], [address] [place] [address] [address], [place], [place], [id number], tel:[phone] [facility] No Information 5200 8 Marvin OD Juan C. [address] , [address], [place], [address], [place]. tel:[phone] Family History Family Member Type Diagnosis Age At Onset No Information Payers Payer name Insurance type Covered alliance party ID Authoriza tion(s) [place] Out [place] [id number] Medicaid [facility] [id number] Social History Type Description Quantity Date Captured [...]
--- OUTSIDE RECORDS SUMMARY | 2024-10-10 22:56 | XMS_ITS | Clinical Summary ---
Author Organization [facility] Address [address] [facility] [place] [address] Care Team Providers Care Core Composer Feeder Name Role Phone Unavailable Primary Care Provider Unavailabl e Source Comments [facility],non-owned Affiliates and Associated Physician Practices is amultiple site organization consisting of ambulatory clinics and hospital sitesin [place], [place], [place] and [place]. This disclosure is being madepursuant to the Care Everywhere program and may not contain all information available regarding this patient. 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
[2024-10-10 22:58] VITALS: BP 125/82; PULSE 105; PULSE 107; RESP 17; TEMP 37; O2SAT 99
[2024-10-10 23:02] LABS: Hematocrit 38.2 % (37.0-47.0); Hemoglobin 13.5 g/dL (12.0-15.0); Immature Granulocyte Percent A 0.3 % (0-0.5); Lymphocytes Absolute Auto 2.23 K/mm3 (0.9-3.2); Mean Corpuscular HGB Conc 35.3 g/dl (32-36); Mean Corpuscular Hemoglobin 28.9 pg (26-34); Mean Corpuscular Volume 81.8 fl (80-100); Nucleated Red Blood Cells Absolute Auto 0.000 K/mm3 (0.0-0.012); Nucleated Red Blood Cells Perc 0.0 % (0.0-0.2); Platelet Count Result 297 k/mm3 (150-375); Red Blood Count 4.67 M/mm3 (4.2-5.4); White Blood Count 12.0 K/mm3 (4.5-10.0)
[2024-10-10 23:22] VITALS: BP 120/85; PULSE 93; RESP 17; O2SAT 100
[2024-10-10 23:43] LABS: Alanine Aminotransferase 21 U/L (6-35); Albumin Level 4.8 g/dL (3.5-5.1); Alkaline Phosphatase 95 U/L (38-126); Anion Gap 11 mmol/L (4-12); Aspartate Amino Transferase 28 U/L (14-36); Bilirubin,Total 0.4 mg/dL (0.2-1.3); Blood Urea Nitrogen 9 mg/dL (7-17); Calcium 9.0 mg/dL (8.4-10.2); Carbon Dioxide 21 mmol/L (22-30); Chloride 103 mmol/L (98-107); Estimated CRCL calculation 102 ml/min; Estimated Glomerular Filt Rate > 60; Glucose 100 mg/dL (65-110); Potassium 3.8 mmol/L (3.4-5.0); Sodium 135 mmol/L (137-145); Total Protein 8.4 g/dL (6.3-8.2)
[2024-10-11 01:18] VITALS: BP 119/64; PULSE 104; RESP 17; O2SAT 100
--- NOTE | 2024-10-11 01:25 | ED_ITS ---
HPI - Abdominal Pain General Chief Complaint: Abdominal Pain Stated Complaint: llq pain Time Seen by Provider: 10/10/24 22:40 History of Present Illness HPI narrative: Patient with history of ovarian cyst and heavy menstrual periods presents here with some intermittent discomfort from her lower pelvis to the left lower pelvis. No nausea vomiting, no dysuria, her pain has gotten much better now and is no longer present, her mother also has history of ovarian cysts and diverticulitis so she wants to make sure she looks fine here. Related Data Allergies Allergy/AdvReac Type Severity Reaction Status Date / Time No Known Allergies Allergy Verified 10/10/24 23:00 Review of Systems 2 Review of Systems: All systems reviewed & are unremarkable except as noted in HPI and below PMFSH Past Medical History Medical History BMI 29.0-29.9,adult BMI 32.0-32.9,adult BMI 31.0-31.9,adult BMI 30.0-30.9,adult BMI 27.0-27.9,adult Anxiety GERD (gastroesophageal reflux disease) Palpitations BMI 28.0-28.9,adult ADD (attention deficit disorder) without hyperactivity Surgical History Surgical History No significant past surgical history Family History Family History Father Alive and well Hypertension Mother Hypertension Epilepsy Sibling No problems noted. Social History Social History Smoking status: Never smoker Second hand tobacco smoke exposure: No Alcohol intake: never Substance use: never Substance use type: does not use Do You Feel Safe in your Home?: Yes Lack of Transportation: No Lack of Food: Never True Current Housing: I Have Housing Concerned About Future Housing: No Difficulty Paying Gas/Electric Bills: No Difficulty Paying for Meds: No Currently Unemployed: No Difficulty w/ Childcare or Family Care: No Living arrangements: with family Occupation/Education: other Gender identity (if verbalized by the patient): Female Exam 2 Narrative: EXAMINATION OF ORGAN SYSTEMS/BODY AREAS: Constitutional: Vital signs per nursing GENERAL:[No acute distress, non-toxic appearing.] HEAD: Normal with no signs of head trauma. EYES: EOMI, conjunctiva normal ENT: Hearing grossly intact LUNGS: Nonlabored breathing. HEART: [Regular rate and rhythm] ABD: [Soft], [nontender to palpation] EXT: Normal range of motion SKIN: [No rashes or lesions.] NEURO: [Alert and oriented x 3. No gross focal sensory or strength deficits.] PSYCH: Normal affect Course Vital Signs Vital signs: Vital Signs Temperature 98.8 F 10/10/24 19:48 Pulse Rate 121 H 10/10/24 19:48 Respiratory Rate 20 10/10/24 19:48 Blood Pressure 119/78 10/10/24 19:48 Pulse Oximetry 100 10/10/24 19:48 Oxygen Delivery Room Air 10/10/24 19:48 Temperature 98.6 F 10/10/24 22:58 Pulse Rate 104 H 10/11/24 01:18 Respiratory Rate 17 10/11/24 01:18 Blood Pressure 119/64 10/11/24 01:18 Pulse Oximetry 100 10/11/24 01:18 Oxygen Delivery Room Air 10/10/24 22:58 MDM - Abdominal Pain MDM Narrative Medical decision making narrative: Pt with h/o ovarian cysts p/w intermittent LLQ pain; she is a few days away she thinks from her next menstrual period. Her pain has essentially resolved now, she had no nausea vomiting associated, she is overall very well-appearing here and very comfortable, so I have very low concern for any acute emergency and I suspect possible ovarian cyst without concern for torsion or rupture. However patient and mother at bedside would really like imaging done given family history of diverticulitis white did tell him this is very unlikely in her given her age, and that is very unlikely for her to be torsion given the degree of pain she is in. They did request CT, this shows bilateral adnexal cysts. On re-eval pt still feels fine, declines pain meds, I discussed her CT / lab findings and advised close f/u with her OBGYN with strict return precautions (cyst rupture or torsion etc), pt agreeable w/ this. Lab Data 10/10/24 22:56 10/10/24 22:56 Labs: Lab Results 10/10/24 10/10/24 10/10/24 Range/Units 20:35 20:40 22:56 WBC 12.0 H (4.5-10.0) K/mm3 RBC 4.67 (4.2-5.4) M/mm3 Hgb 13.5 (12.0-15.0) g/dL Hct 38.2 (37.0-47.0) % MCV 81.8 (80-100) fl MCH 28.9 (26-34) pg MCHC 35.3 (32-36) g/dl RDW 12.8 (11.5-14.5) % Plt Count 297 (150-375) k/mm3 MPV 10.1 (7.4-10.4) fl Immature Gran % (Auto) 0.3 (0-0.5) % Neut % (Auto) 75.7 H (45.5-73.1) % Lymph % (Auto) 18.6 (18.3-44.2) % [place] % (Auto) 4.8 (2.6-8.5) % Eos % (Auto) 0.3 (0-4.4) % Baso % (Auto) 0.3 (0.2-1.2) % Lymph # (Auto) 2.23 (0.9-3.2) K/mm3 [place] # (Auto) 0.6 (0.1-0.6) K/mm3 Eos # (Auto) 0.0 (0-0.3) K/mm3 Baso # (Auto) 0.0 (0.0-0.1) K/mm3 Abs Immat Gran (auto) 0.03 (0.00-0.031) K/mm3 Absolute Neuts (auto) 9.1 H (1.3-6.7) K/mm3 Absolute Nucleated RBC 0.000 (0.0-0.012) K/mm3 Nucleated RBC % 0.0 (0.0-0.2) % Sodium 135 L (137-145) mmol/L Potassium 3.8 (3.4-5.0) mmol/L Chloride 103 (98-107) mmol/L Carbon Dioxide 21 L (22-30) mmol/L Anion Gap 11 (4-12) mmol/L BUN 9 (7-17) mg/dL Creatinine 0.74 (0.7-1.0) mg/dL Estim Creat Clear Calc 102 ml/min Estimated GFR > 60 (59 - ) Glucose 100 (65-110) mg/dL Calcium 9.0 (8.4-10.2) mg/dL Total Bilirubin 0.4 (0.2-1.3) mg/dL AST 28 (14-36) U/L ALT 21 (6-35) U/L Alkaline Phosphatase 95 (38-126) U/L Total Protein 8.4 H (6.3-8.2) g/dL Albumin 4.8 (3.5-5.1) g/dL Urine Color Yellow (Yellow) Urine Appearance Clear (Clear) Urine pH 5.5 (5.0-9.0) Ur Specific [place] 1.006 (1.001-1.035) Urine Protein Negative (Negative) mg/dL Urine Glucose (UA) Negative (Negative) mg/dL Urine Ketones Negative (Negative) mg/dL Ur Blood (Man) Negative (Negative) Urine Nitrate Negative (Negative) Urine Bilirubin Negative (Negative) Urine Urobilinogen 0.2 (<2.0) mg/dL Leukocyte Esterase Rfl Trace H (Negative) SAUD/UL Urine RBC 0-2 (0-2) /hpf Urine WBC 0-5 (0-3) /hpf Ur Squamous Epith Cells None seen (Few) /hpf Urine Bacteria None seen /hpf Urine Casts 0-2 POC Urine HCG, Qual Negative (Negative) Discharge Plan Discharge Clinical Impression: Cysts of both ovaries Patient Disposition: Home Condition: Stable Instructions: Ovarian Cyst (ED) Additional Instructions: Please follow up with your OBGYN (you can follow up with the oncall APPLICATION PENETRATION TESTER if you don't have one). If you start having severe pain especially with nausea/vomiting, please return to the ER immediately. Patient Language: Mexican Prescriptions: No Action metformin 500 mg tablet 500 mg PO BID Qty: 60 3RF cholecalciferol (vitamin D3) 1,250 mcg (50,000 unit) capsule 1,250 mcg PO WEEKLY Qty: 8 0RF Follow-up/Referrals: Ashwin Gunter MD [Physician] - 2 Days James Pierce MD [Primary Care Provider] -
== END 2024-10-11 01:35 | disposition home or self-care (01) ==
PROVIDERS: Emergency Provider Emergency Medicine; PCP Family Medicine
DX: N83.202 Unspecified ovarian cyst, left side (principal); N83.201 Unspecified ovarian cyst, right side
CPT/HCPCS: 36415; 74177; 80053; 81001; 81025; 85025; 99284; Q9967

== ENCOUNTER 2024-12-19 20:10 | Emergency (ER) | payer OTHER, SELFPAY ==
--- OUTSIDE RECORDS SUMMARY | 2009-11-10 11:00 | XMS_ITS | Continuity of Care Document ---
Author Organization [facility] Address [address] [place] [address] Phone Care Team Providers Care Channel Lip Wetter Name Role Phone Marvin OD, Juan C Unavailable Unavailable Procedures Procedure Date Eye Exam & Treatment Refraction Eye Exam & Treatment Refraction Eye Exam, New Patient Refraction Advance Directives Directive Yes / No Effective Date File Name No Information Encounters Encounter Description Practice Location Reason(s) For Visit Diagnoses Date Provider Providers Copied on Encounter [facility], [address] [place] [address] [address], [place], [place], [id number], tel:[phone] [facility] No Information 6-201 0 Marvin OD Juan C. [address] , [address], [place], [place], [facility], . tel:[phone] [facility], [address] [place] [address] [address], [place], [place], [id number], [place] tel:[phone] [facility] No Information 2-200 9 Marvin OD Juan C. [address] , [address], [place], [place], [facility], . tel:[phone] [facility], [address] [place] [address] [address], [place], [place], [id number], tel:[phone] [facility] No Information 5200 8 Marvin OD Juan C. [address] , [address], [place], [address], [place]. tel:[phone] Family History Family Member Type Diagnosis Age At Onset No Information Payers Payer name Insurance type Covered libertarian ID Authoriza tion(s) [place] [id number] Medicaid [facility] [id number] Social History Type Description Quantity Date Captured Comments Sex Female Smoking Status No Information Chief Complaint And Reason For Visit No Information Reason For Referral Reason For Referral No Information History Of Present Illness Encounter Date Complaint History Of Prese nt Illness No Information Functional Status Date Functional Assessmen t No Information Instructions Date Instruction Additional Infor mation No Information Assessments Type Assessment Date No Information Patient Care Teams Name Effective Dates (start - stop) Status Members No Information
--- NOTE | ~2024-12-19 | CT_ITS ---
EXAMINATION: CTA brain carotid DATE: 12/20/2024 02:56 INDICATION: Headache. TECHNIQUE: Computed tomographic angiography (CTA) of the head was performed without and with 100 mL Omnipaque-350 intravenous contrast. CTA of the neck was performed with intravenous contrast. Automated exposure control and iterative reconstruction technique were employed. The dose-length product was 1710.70 mGy- cm. Maximum intensity projection and volume rendered 3D-reconstructions were created by the technologist on a separate workstation. COMPARISON: Head CT 01/20/2023 FINDINGS: HEAD CTA: There is no intracranial hemorrhage, acute infarction, or abnormal intracranial mass lesion. The ventricles are normal in size. The paranasal sinuses are clear. The mastoid air cells are normal. Left vertebral artery is dominant. There is no significant stenosis of basilar artery or the posterior cerebral arteries. There is no significant stenosis of the intracranial internal carotid arteries or anterior or middle cerebral arteries. Anterior communicating artery is normal. The posterior communicating arteries are normal. There is no aneurysm. NECK CTA: There are no pathologically enlarged lymph nodes. There is no significant stenosis of the vertebral arteries. There is no visible plaque in the proximal internal carotid arteries. There is 0% stenosis of the proximal right internal carotid artery relative to normal distal artery lumen diameter (NASCET criteria). There is 0% stenosis of the proximal left internal carotid artery relative to normal distal artery lumen diameter. There is mild kyphosis of cervical spine. IMPRESSION: 1. Normal brain. 2. No aneurysm or significant intracranial arterial stenosis 3. 0% stenosis of the proximal internal carotid arteries relative to normal distal artery lumen diameters (NASCET criteria). Reviewed, dictated and finalized at location E. IMPRESSION: 1. Normal brain. 2. No aneurysm or significant intracranial arterial stenosis 3. 0% stenosis of the proximal internal carotid arteries relative to normal dis tiny artery lumen diameters (NASCET criteria).
[2024-12-19 20:18] VITALS: BP 122/69; PULSE 100; RESP 20; TEMP 36.6; O2SAT 100
[2024-12-20 01:14] VITALS: BP 93/58; PULSE 88; RESP 17; TEMP 36.4; O2SAT 100
--- OUTSIDE RECORDS SUMMARY | 2024-12-20 01:19 | XMS_ITS | Clinical Summary ---
Author Organization [facility] Address [address] [place] [address] Care Team Providers Care Shaker Tender Name Role Phone Unavailable Primary Care Provider Unavailabl e Source Comments [facility],non-owned Affiliates and Associated Physician Practices is amultiple site organization consisting of ambulatory clinics and hospital sitesin [place], [place], [place] and [place]. This disclosure is being madepursuant to the Care Everywhere program and may not contain all information available regarding this patient. 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 MEDICAID - [place] [facility] MED[facility] - OUT OF STATE
--- OUTSIDE RECORDS SUMMARY | 2024-12-20 01:19 | XMS_ITS | Data Portability ---
Author Organization [facility] Address [address] [place] [address] Care Team Providers Care Cota Name Role Phone GUILLERMO WAN Primary Care Provider [phone] Assessment Encounter Date Assessment Date Assessment LastModified by Organization Details LastModified Time 11/06/2022 11/06/2022 Annual gynecological exam performed. Patient will come back in a year unless there are new symptoms. Not available 11/06/2022 14:43:49 Plan of Treatment Reminders Order Date Submit Date Provider Last Modified By Organization Details Last Modified Time Details Appointments None recorded. Lab None recorded. Referral None recorded. Procedures None recorded. Surgeries None recorded. Imaging US, transvagina l 2022 023 [email or web address] [facility], [address], [place], [address], 3 21:17:18 Medication Orders Junel Fe 24 1 mg-20 mcg (24)/75 mg (4) tablet 2022 023 JUAN [facility] [address] , [place], [address], 3 15:05:34 fluconazole 150 mg tablet 2022 023 [email or web address] 1 [facility] [address] , [place], [address], 3 14:45:18 nystatin-tr iamcinolone 100,000 unit/gram-0 .1 % topical ointment 2022 023 [email or web address] 1 [facility] [address] [address], [place], [address], 3 14:45:20 Patient TargetsNo targets recorded. Patient [...] Autho carol barker Provi gretchen: Heydi Kendall, CONTACT CENTER ANALYST Colle cted: 11/06 1621 Order ing Locat [...] patie nt consi derat ions. Not Available [facility] (Lab) [address], [place], [address], 11/09/2022 14:21:47 11/07/19 23 11/06/2022 TRICH OMONA S VAGIN VU (RRNA ) trichomonas vaginalis ribosomal RNA (rrna) Negati ve negati ve Not Available [facility] (Lab) [address] [facility] [address], [place], [address], 11/09/2022 14:21:48 11/07/19 23 11/06/2022 CT/GC (TYLER) , THINP REP VIAL chlamydia trachomatis, PCR Negati ve negati ve Not Available [facility] (Lab) [address] [place], [address], 11/09/2022 14:21:48 11/07/19 23 11/06/2022 CT/GC (TYLER) , THINP REP VIAL neisseria gonorrhoeae, PCR Negati ve negati ve Not Available [facility] (Lab) [address] [facility], [place], [address], 11/09/2022 14:21:48 12/05/19 23 12/04/2022 US, trans vagin al No observ ation [facility] [address], [place], [address], 12/04/2022 16:30:09 12/05/19 23 12/04/2022 US, trans vagin al No observ ation record ed. JUAN [facility] [address], [place], [address], 12/06/2022 01:27:23 Result Notes None recorded. Procedures Surgical History Date Name Laterality Status Provider Name and Address Organization Details Recorded Time 11/07/19 Date of Last Pap Smear completed Reyna Camejo [facility] 11/06/2022 16:21:23 08/30/19 09 tonsillectomy and adenoidectomy completed Lisa Del Valle [facility] 10/23/2022 11:43:05 Imaging Results None recorded. [...] Updated DateTime 10/23/2022 161.93 cm 28 kg/m2 82790.96 g 127/85 mm[Hg] Lisa Del Valle [facility] 10/23/2022 11:38:55 Date Recorded Body height Body mass index (BMI) Body weight Systolic And Diastolic Provider Name and Address Organization Details Last Updated DateTime 11/06/2022 161.93 cm 28.4 kg/m2 57148.15 g 120/77 mm[Hg] Reyna Camejo [facility] 11/06/2022 14:44:40 Social History Question Answer Notes LastModified by Organizat ion Details LastModified Time Tobacco Smoking Status Never Smoker Martina tanner [facility] 12/04/2022 14:28:03 How Many Years Have You Consumed Alcohol? 0 [email or web address] Information not available 11/06/2022 Are You Blind Or Do You Have Difficulty Seeing? No Information n ot available 10/23/2022 What Is Your Level Of Caffeine Consumption? Occasional [email or web address] Information not available 11/06/2022 How Much Tobacco Do You Chew? None [email or web address] Information not available 11/06/2022 In The 14 Days Before Symptom Onset, Have You Had Close Contact With A Laboratory-confirm ed COVID-19 While That Case Was Ill? No [email or web address] Information n ot available 11/06/2022 In The 14 Days Before Symptom Onset, Have You Had Close Contact With A Person Who Is Under Investigation For COVID-19 While That Person Was Ill? No [email or web address] Information not available 11/06/2022 Have You Been To An Area Known To Be High Risk For COVID-19? No [email or web address] Information not available 11/06/2022 Are You Deaf Or Do You Have Serious Difficulty Hearing? No Information not available 10/23/2022 What Type Of Diet Are You Following? REGULAR [email or web address] Information n ot available 11/06/2022 What Is The Highest Grade Or Level Of School You Have Completed Or The Highest Degree You Have Received? [id number] Information not available 11/06/2022 Are There Any Guns Present In Your Home? Yes [email or web address] Information not available 11/06/2022 Do You Use Protection During Sex? No [email or web address] Information not available 11/06/2022 Do You Use Your Seat Belt Or Car Seat Routinely? Yes [email or web address] Information not available 11/06/2022 Do You Have Smoke And Carbon Monoxide Detectors In Your Home? Yes [email or web address] Information not available 11/06/2022 At What Age Did You Start Smoking Tobacco? 0 [email or web address] Information not available 11/06/2022 How Much Tobacco Do You Smoke? No Information not available 11/06/2022 Do You Use Sunscreen Routinely? No [email or web address] Information not available 11/06/2022 How Many Years Have You Smoked Tobacco? 0 [email or web address] Information not available 11/06/2022 Have You Used IV Drugs? No [email or web address] Information not available 11/06/2022 Do You Have Difficulty Walking Or Climbing Stairs? No [email or web address] Information not available 12/04/2022 Sex: Unknown Functional Status Question Answer Note LastModified by Organizat ion Details LastModified Time Do you use any illicit or recreational drugs? No Information not available 11/06/2022 What is your level of alcohol consumption? None Information not available 10/23/2022 Are you able to walk independently without assistance or assistive devices? YESWOREST Information not available 10/23/2022 Are you able to care for yourself independently? Yes Information not available 12/04/2022 What is your occupation? Unemployed [email or web address] Information not available 11/06/2022 Do you have difficulty dressing, bathing, grooming, or toileting? No [email or web address] Information not available 12/04/2022 What is your exercise level? Occasional [email or web address] Information not available 11/06/2022 Mental Status Question Answer Note LastModified by Organization D etails LastModified Time Do you feel stressed (tense, restless, nervous, or anxious, or unable to sleep at night)? [id number] [email or web address] Information not available 11/06/2022 Family History Relationship Description Onset Age of this Age Resolved Age Notes LastModified by Organization Details LastModified Time Maternal Grandfather Anemia [email or web address] Not available 11:40:23 Maternal Grandfather Diabetes mellitus matera nl great grandf ather [email or web address] Not available 10/23/2022 11:41:40 Maternal Grandfather Essential hypertension [email or web address] Not available 14:28:03 Maternal Grandmother Malignant neoplasm of breast matern al great grandm other [email or web address] Not available 10/23/2022 11:40:47 Maternal Grandmother Essential hypertension [email or web address] Not available 14:28:03 Paternal Grandfather Malignant neoplasm of colon [email or web address] Not available 10/2022 11:40:59 Paternal Grandfather Essential hypertension Not available 14:28:03 Mother Essential hypertension Not available 14:28:03 Mother Seizure disorder [email or web address] Not available 2022 14:28:03 Father Essential hypertension Not available 14:28:03 Paternal Grandmother Essential hypertension [email or web address] Not available 14:28:03 Medical History Condition Response Allergies (Food, seasonal, environmental ) N Other N Drug/Latex Allergies/Reactions N Blood Transfusion N Breast Cancer N Dermatologic Disorders N Lung Disease N Defects or Inherited Disease N Breast Problem N Gestational Diabetes N Hematologic disorders N Anesthesia Complications N History of STI N Deep Vein Thrombosis N Polycystic ovary syndrome N Anxiety Disorder N Autoimmune disease N Arthritis N Polyps N Infertility N Acid Reflux (GERD) N History of abnormal pap N Cancer N Varicosities N Stroke N Neurologic/Epilepsy N Endometriosis N High Cholesterol N Fibromyalgia N Headaches Y Kidney Disease N Heart Problems N Thyroid [...] Diagnosis SNOMED-CT Code Diagnosis ICD10 Code Diagnosis IMO Codes Diagnosis Note [id number] IFEANYI Garcia [facility] [address] [address] 10/23/2022 10:47:50 10/23/2022 12:06:34 Pain in pelvis 85593367 R10.2 This patient is a 22 -year-old [...] and review of plan of care. Vaginitis 08070314 N76.0 Venereal d isease screening 601886345 Z11.3 Cyst of ovary 76881854 N 83.209 Contracept ion care management 209045136 Z30.9 [id number] IFEANYI Garcia [facility] [address] [address] 11/06/2022 14:20:07 11/06/2022 15:16:55 Gynecologic examination 41227473 Z01.419 Take Calcium with Vitamin D daily [...] in 3-4 months Contracept ion care management [id number] Z30.9 Cyst of ovary [id number] N 83.209 5.7cm right ovarian cyst, seen on u/s 3pa tient feeling well today - no symptoms, repeat u/s is scheduled for f/uprecaut ions reviewed with patient [id number] Arnold Mayes MD [facility] [address] [address] 12/04/2022 14:27:50 12/04/2022 14:55:56 Cyst of right ovary [id number] N83.201 Health Concerns Section Related Observation LastModified by Organization Detai ls LastModified Time None Recorded Concern Status LastModified by Organization Details LastModified Time None Recorded Advance Directives Directive None Recorded Payers Insurance Date Sequence Insurance Name Policy Number Policy Dominguez Covered Member ID Dominguez Member ID Guarantor Name 12/03/2022 1 UMR [id number] Иван Raza [id number] Иван Raza 12/03/2022 2 [place] DEPARTMENT [place] PUBLIC AID Shahida Raza [id number] Иван Raza Notes Date Note Type Note Provider Name and Address Organization Details Recorded Time 10/23/2022 text/html Beer-Pelvic PainReported by Patient 22yo [id number] to discuss pelvic pain/ovarian cystexperienced intense pelvic pain on 10/16/22, went to [facility]. Had an u/s performed - Found [...] periodsneg n/v/fneg urinary symptoms IFEANYI Garcia [address], [place], [address], [place] [facility] 10/23/2022 12:04:32 11/06/2022 text/html Annual GYNReport ed by Patient IFEANYI Garcia [address], [place], [address], [place] [facility] 11/06/2022 15:06:17 OBGyn Episode No OBEpisode recorded.
--- NOTE | 2024-12-20 01:38 | ED.HA ---
HPI - Headache General Chief Complaint: Headache Stated Complaint: chills, headache, back, R arm, neck [id number] Time Seen by Provider: 12/20/24 01:06 Source: patient and other (fiance) Mode of arrival: ambulatory Limitations: no limitations History of Present Illness HPI Narrative: Right hand dominant female presents with headache of one month's duration.Associated with right arm and neck pain for the same time. Has been taking Tylenol x2 tablets q6 hours and ibuprofen 200mg x2 tablets or Midol. She had been having headaches and believes a CT scan was performed 1 year ago but the headaches have gotten worse. Saw her PCP [employer] . No unilateral motor/sensory changed. Associated with chills. Started to take Nurtec (Rx every other day). Also Rx Zofran. No house members with similar symptoms. Denies any trauma she knows about but reports being clumsy. No anticoagulation. No vision changes, blurred vision, or double. Associated with photophobia and phonophobia. no eye pain. Has nausea but no vomiting. Has not seen a neurologist. Headache sometimes frontal and sometimes her whole head is involved. Related Data Allergies Allergy/AdvReac Type Severity Reaction Status Date / Time No Known Allergies Allergy Verified 12/20/24 01:15 [facility] Past Medical History Medical History Right hand dominant Type 2 diabetes mellitus BMI 29.0-29.9,adult BMI 32.0-32.9,adult BMI 31.0-31.9,adult BMI 30.0-30.9,adult BMI 27.0-27.9,adult Anxiety GERD (gastroesophageal reflux disease) Palpitations BMI 28.0-28.9,adult ADD (attention deficit disorder) without hyperactivity Surgical History Surgical History No significant past surgical history Family History Family History Father Alive and well Hypertension Mother Hypertension Epilepsy Sibling No problems noted. Social History Social History (Updated 12/21/24 @ 19:15 by Magda Wallace MD) Social History: Engaged Smoking status: Never smoker Second hand tobacco smoke exposure: No Alcohol intake: never Substance use: never Substance use type: does not use Do You Feel Safe in your Home?: Yes Lack of Transportation: No Lack of Food: Never True Current Housing: I Have Housing Concerned About Future Housing: No Difficulty Paying Gas/Electric Bills: No Difficulty Paying for Meds: No Currently Unemployed: No Difficulty w/ Childcare or Family Care: No Living arrangements: with family Additional living arrangements comments: mom, dad, sister, fiance Occupation/Education: other Gender identity (if verbalized by the patient): Female Exam Narrative: GENERAL: Well-appearing, well-nourished, and in no acute distress. HEAD: Normocephalic, atraumatic. EYES: Non injected, non icteric. PERRL. No nystagmus or gaze palsy. ENT: Nares clear, no rhinorrhea or epistaxis. Gross auditory acuity intact. NECK: Supple. No meningismus. CHEST: Speaking in full sentences. No respiratory distress. HEART: Regular rate and rhythm. . ABDOMEN: Soft, nondistended. EXTREMITIES: Normal range of motion. Moves x4. SKIN: Warm, dry, no rash. NEURO: No focal deficits. Alert and oriented. Answering questions. Following commands. Normal speech without aphasia or dysarthria. PSYCH: Normal mood and affect. Course Vital Signs Vital signs: Vital Signs Temperature 97.9 F 12/19/24 20:18 Pulse Rate 100 12/19/24 20:18 Respiratory Rate 20 12/19/24 20:18 Blood Pressure 122/69 12/19/24 20:18 Pulse Oximetry 100 12/19/24 20:18 Oxygen Delivery Room Air 12/19/24 20:18 Temperature 97.6 F 12/20/24 01:14 Pulse Rate 77 12/20/24 04:55 Respiratory Rate 18 12/20/24 04:55 Blood Pressure 116/67 12/20/24 04:55 Pulse Oximetry 98 12/20/24 04:55 Oxygen Delivery Room Air 12/19/24 20:18 MDM - Headache MDM Narrative Medical decision making narrative: After obtaining the patient's history and performing a physical exam, the headache is most likely due to benign etiology. The neurological examination is non-focal, vital signs are within normal limits, and the patient is non-toxic appearing. The Ddx for the patient's headache is tension headache, migraine, or other headache of non-emergent etiology. Unlikely SAH: headache is non-thunderclap. Headache is gradual, non-maximal at onset and similar to headaches in the past. Unlikely subdural/epidural hematoma: no history of trauma, no anticoagulation Unlikely meningitis: afebrile, no meningismus, mild photophobia Unlikely temporal arteritis: pt <60 years old. Unlikely acute angle glaucoma: PERRL, no eye pain Unlikely carbon monoxide poisoning: no other house members with similar symptoms However, given patient's symptoms have been going on for >1 month (and chronically before that), will obtain imaging. She reports a negative CT , presumably non contrast so will proceed with CTA. She has an abnormal urinalysis. She denies any dysuria or hematuria but she does state that she has been having urinary frequency/urgency and for this reason we will treat. In addition she has a Mild leukocytosis. Chemistry with normal renal function no marked electrolyte abnormalities. Initially ordered IV fluids and PO Tylenol. After negative imaging, The patient's headache was treated symptomatically with ketorolac, benadryl, compazine; magnesium. She has a history of diabetes but we discussed the risks and benefits of a 1 time dose of a steroid to reduce the recurrence of rebound/bounce-back headache. Shared decision making and she is amenable with proceeding with the 1 time dose. Upon reevaluation at 4:15, she reports her headache is much better. Discharged and advised to follow up with PCP, continue meds, and keep a log. Lab Data Attestation: I reviewed the patient's lab results. Lab results narrative: Viral swab negative. UDS negative. 12/20/24 02:10 12/20/24 02:10 Labs: Lab Results 12/20/24 12/20/24 12/20/24 Range/Units 01:58 02:01 02:10 WBC 11.8 H (4.5-10.0) K/mm3 RBC 4.79 (4.2-5.4) M/mm3 Hgb 13.7 (12.0-15.0) g/dL Hct 39.9 (37.0-47.0) % MCV 83.3 (80-100) fl MCH 28.6 (26-34) pg MCHC 34.3 (32-36) g/dl RDW 12.6 (11.5-14.5) % Plt Count 273 (150-375) k/mm3 MPV 10.0 (7.4-10.4) fl Immature Gran % (Auto) 0.3 (0-0.5) % Neut % (Auto) 66.3 (45.5-73.1) % Lymph % (Auto) 27.7 (18.3-44.2) % Villalba % (Auto) 4.6 (2.6-8.5) % Eos % (Auto) 0.8 (0-4.4) % Baso % (Auto) 0.3 (0.2-1.2) % Lymph # (Auto) 3.28 H (0.9-3.2) K/mm3 Villalba # (Auto) 0.6 (0.1-0.6) K/mm3 Eos # (Auto) 0.1 (0-0.3) K/mm3 Baso # (Auto) 0.0 (0.0-0.1) K/mm3 Abs Immat Gran (auto) 0.04 H (0.00-0.031) K/mm3 Absolute Neuts (auto) 7.8 H (1.3-6.7) K/mm3 Absolute Nucleated RBC 0.000 (0.0-0.012) K/mm3 Nucleated RBC % 0.0 (0.0-0.2) % Sodium 138 (137-145) mmol/L Potassium 3.6 (3.4-5.0) mmol/L Chloride 103 (98-107) mmol/L Carbon Dioxide 23 (22-30) mmol/L Anion Gap 12 (4-12) mmol/L BUN 10 (7-17) mg/dL Creatinine 0.73 (0.7-1.0) mg/dL Estim Creat Clear Calc 103 ml/min Estimated GFR > 60 (59 - ) Glucose 89 (65-110) mg/dL Calcium 9.2 (8.4-10.2) mg/dL Magnesium 2.0 (1.6-2.3) mg/dL Total Bilirubin 0.3 (0.2-1.3) mg/dL AST 30 (14-36) U/L ALT 27 (6-35) U/L Alkaline Phosphatase 100 (38-126) U/L Total Protein 8.7 H (6.3-8.2) g/dL Albumin 4.8 (3.5-5.1) g/dL Urine Color Yellow (Yellow) Urine Appearance Cloudy H (Clear) Urine pH 6.0 (5.0-9.0) Ur Specific [place] 1.033 (1.001-1.035) Urine Protein Negative (Negative) mg/dL Urine Glucose (UA) Negative (Negative) mg/dL Urine Ketones Trace H (Negative) mg/dL Ur Blood (Man) Negative (Negative) Urine Nitrate Negative (Negative) Urine Bilirubin Negative (Negative) Urine Urobilinogen 1.0 (<2.0) mg/dL Leukocyte Esterase Rfl 1+ H (Negative) SAUD/UL Urine RBC 11-20 H (0-2) /hpf Urine WBC 11-20 H (0-3) /hpf Ur Squamous Epith Cells Few (Few) /hpf Cholesterol Crystals Present H (None) /hpf Urine Bacteria 1+ H /hpf Urine Casts 0-2 POC Urine HCG, Qual Negative (Negative) Urine Opiates Screen Negative (Negative) Urine Methadone Screen Negative (Negative) Ur Barbiturates Screen Negative (Negative) Ur Phencyclidine Scrn Negative (Negative) Ur Amphetamine Screen Negative (Negative) U Benzodiazepines Scrn Negative (Negative) Urine Cocaine Screen Negative (Negative) U Cannabinoids Screen Negative (Negative) Influenza A (RT-PCR) Negative (Negative) Influenza B (RT-PCR) Negative (Negative) RSV (RT-PCR) Negative (Negative) SARS-CoV-2 RNA (RT-PCR) Negative (Negative) Imaging Data Radiologist's impression: CT head stat rad: prior 01/20/23: No acute intracranial finding. CTA neck Stat rad: Unremarkable arterial structures. No acute finding CTA head: No large vessel occlusion. Consider MRI if there is concern for stroke. Discharge Plan Discharge Clinical Impression: Headache, Leukocytosis, UTI (urinary tract infection) Patient Disposition: Home Condition: Stable Instructions: Antibiotic Form, Urinary Tract Infection in Women (DC), General Headache (ED) Additional Instructions: Follow-up with your primary care provider. Continue taking medications as prescribed. Acetaminophen/Tylenol (maximum 4000 mg per day) is safe to take with NSAIDs (ibuprofen/Motrin) for pain relief. Keep a log of your headaches and take this to follow-up appointment. Return to the emergency department any new or worsening symptoms. You received your 1st dose of antibiotic in the emergency department the rest of the course has been prescribed for your urinary tract infection. Rest and maintain your hydration. A CTA brain/carotid artery study was performed today and normal. Patient Language: Japanese Prescriptions: New sulfamethoxazole-trimethoprim [Bactrim DS] 800-160 mg tablet 1 tablet PO Q12H 5 Days Qty: 9 0RF Rx Instructions: rec'd first dose antibiotic in the ED 10/5 AM No Action Nurtec ODT 75 mg tablet,disintegrating 75 mg PO .COMPLEX Qty: 16 1RF Rx Instructions: 75 mg orally every other day ondansetron HCl 4 mg tablet 4 mg PO Q8H PRN (Reason: nausea and vomiting) Qty: 20 0RF fluconazole 150 mg tablet 150 mg PO ONCE Qty: 2 0RF Rx Instructions: as a single dose. May repeat after 2 days Follow-up/Referrals: Andreia Samuels NP [Advanced Practice Nurse, Family Practice] James Pierce MD [Primary Care Provider, Family Practice] Stand Alone Forms: Work/School Release IP Time of Disposition: 04:21
[2024-12-20] MEDS: ACETAMINOPHEN 500 MG TABLET 1000 MG PO (02:00)
[2024-12-20 02:03] LABS: BEDSIDEPREGUCG Negative (Negative)
[2024-12-20] MEDS: SODIUM CHLORIDE 0.9% IV 1,000 ML 999 ML IV CONT (02:10)
[2024-12-20 02:14] VITALS: BP 110/81; PULSE 87; RESP 17; O2SAT 99
[2024-12-20 02:16] LABS: Hematocrit 39.9 % (37.0-47.0); Hemoglobin 13.7 g/dL (12.0-15.0); Immature Granulocyte Percent A 0.3 % (0-0.5); Lymphocytes Absolute Auto 3.28 K/mm3 (0.9-3.2); Mean Corpuscular HGB Conc 34.3 g/dl (32-36); Mean Corpuscular Hemoglobin 28.6 pg (26-34); Mean Corpuscular Volume 83.3 fl (80-100); Nucleated Red Blood Cells Absolute Auto 0.000 K/mm3 (0.0-0.012); Nucleated Red Blood Cells Perc 0.0 % (0.0-0.2); Platelet Count Result 273 k/mm3 (150-375); Red Blood Count 4.79 M/mm3 (4.2-5.4); White Blood Count 11.8 K/mm3 (4.5-10.0)
[2024-12-20 02:28] LABS: Alanine Aminotransferase 27 U/L (6-35); Albumin Level 4.8 g/dL (3.5-5.1); Alkaline Phosphatase 100 U/L (38-126); Anion Gap 12 mmol/L (4-12); Aspartate Amino Transferase 30 U/L (14-36); Bilirubin,Total 0.3 mg/dL (0.2-1.3); Blood Urea Nitrogen 10 mg/dL (7-17); Calcium 9.2 mg/dL (8.4-10.2); Carbon Dioxide 23 mmol/L (22-30); Chloride 103 mmol/L (98-107); Estimated CRCL calculation 103 ml/min; Estimated Glomerular Filt Rate > 60; Glucose 89 mg/dL (65-110); Magnesium 2.0 mg/dL (1.6-2.3); Potassium 3.6 mmol/L (3.4-5.0); Sodium 138 mmol/L (137-145); Total Protein 8.7 g/dL (6.3-8.2)
[2024-12-20 02:28] LABS: Add Urine Microscopic? YES; Appearance Urine Cloudy (Clear); Cannabinoid Screen Urine Negative (Negative); Cholesterol Crystals Ur Present /hpf; Glucose Urine UA Negative (Negative); Leukocyte Esterase Ur 1+ LEU/UL (Negative); Nitrate Urine Negative (Negative); Non Pathogenic Casts 0-2; Specific Grav Ur 1.033 (1.001-1.035)
[2024-12-20 02:41] LABS: Influenza A QL RT-PCR Negative (Negative); Influenza B QL RT-PCR Negative (Negative); RSV RNA, RT-PCR Negative (Negative); SARS-CoV-2 RNA PCR Negative (Negative)
[2024-12-20] MEDS: MAGNESIUM SULF 1 GM/D5W 100 ML 1 GM/100 ML BAG IVPB (03:37)
[2024-12-20] MEDS: PROCHLORPERAZINE EDISYLATE 10 MG/2 ML VIAL 5 MG IV PUSH (03:37)
[2024-12-20] MEDS: KETOROLAC 15 MG/ML VIAL (*BKC) IV PUSH (03:37)
[2024-12-20] MEDS: SULFAMETHOXAZOLE/TRIMETHOPRIM 800/160 MG DS TABLET 1 TAB PO (04:49)
[2024-12-20 04:55] VITALS: BP 116/67; PULSE 77; RESP 18; O2SAT 98
== END 2024-12-20 04:56 | disposition home or self-care (01) ==
PROVIDERS: Emergency Provider Student in an Organized Health Care Education/Training Program; PCP Family Medicine
DX: N39.0 Urinary tract infection, site not specified (principal); R51.9 Headache, unspecified; D72.829 Elevated white blood cell count, unspecified; Z20.822 Contact with and (suspected) exposure to COVID-19; E11.9 Type 2 diabetes mellitus without complications; K21.9 Gastro-esophageal reflux disease without esophagitis
CPT/HCPCS: 36415; 70496; 70498; 80053; 80307; 81001; 81025; 83735; 85025; 87086; 87637; 96361; 96365; 96375; 99284; A9270; J0780; J1200; J1885; J3475; J7030; J8540; Q9967

== ENCOUNTER 2024-12-27 07:06 | Emergency (ER) | payer OTHER, SELFPAY ==
--- OUTSIDE RECORDS SUMMARY | 2009-11-10 11:00 | XMS_ITS | Continuity of Care Document ---
Author Organization [facility] Address [address] [place] [address] Phone Care Team Providers Care Temple Marker Name Role Phone Marvin OD, Juan C Unavailable Unavailable Procedures Procedure Date Eye Exam & Treatment Refraction Eye Exam & Treatment Refraction Eye Exam, New Patient Refraction Advance Directives Directive Yes / No Effective Date File Name No Information Encounters Encounter Description Practice Location Reason(s) For Visit Diagnoses Date Provider Providers Copied on Encounter [facility], [address] [place] [address] [address], [place], [place], [id number], tel:[phone] [facility] No Information 6-201 0 Marvin OD Juan C. [address] [facility] , [address], [place], [place], [facility], . tel:[phone] [facility], [address] [place] [address] [address], [place], [place], [id number], [place] tel:[phone] [facility] No Information 2-200 9 Marvin OD Juan C. [address] [facility] , [address], [place], [place], [facility], . tel:[phone] [facility], [address] [place] [address] [address], [place], [place], [id number], tel:[phone] [facility] No Information 5200 8 Marvin OD Juan C. [address] , [address], [place], [address], [place]. tel:[phone] Family History Family Member Type Diagnosis Age At Onset No Information Payers Payer name Insurance type Covered alliance party ID Authoriza tion(s) BCBS [place] Out Of [place] [id number] Medicaid [facility] [id number] Social History Type Description Quantity Date Captured [...]
[2024-12-27] VITALS (11 sets, daily range): BP systolic 102–129; BP diastolic 51–84; PULSE 89–156; RESP 16–18; TEMP 36.9; O2SAT 100
--- NOTE | ~2024-12-27 | XR_ITS ---
Examination: XR chest 2V Clinical History: chest pain Comparison: 02/12/2023 Technique: PA and Lateral Findings: Cardiomediastinal silhouette normal size and configuration. Lungs clear. No acute bony abnormality. IMPRESSION: 1. No acute cardiopulmonary findings. Reviewed, dictated and finalized at location R.
--- NOTE | 2024-12-27 07:13 | ECG_ITS ---
Test Date: 2024-12-27 07:19:34 Measurements Intervals [place] Rate: 121 P: 38 WI: 138 QRS: 52 QRSD: 90 T: 44 QT: 331 QTc: 470 Interpretive Statements SINUS TACHYCARDIA NONSPECIFIC ST & T-WAVE ABNORMALITY- ANTEROLAT/INF LEADS BASELINE ARTIFACT- I, III, AVL ABNORMAL ECG No previous ECG available for comparison Electronically Signed On 12-27-2024 07:38:30 CDT by Vincent Hendrickson D.O.
[2024-12-27 07:24] LABS: Hematocrit 38.4 % (37.0-47.0); Hemoglobin 13.5 g/dL (12.0-15.0); Immature Granulocyte Percent A 0.4 % (0-0.5); Lymphocytes Absolute Auto 3.13 K/mm3 (0.9-3.2); Mean Corpuscular HGB Conc 35.2 g/dl (32-36); Mean Corpuscular Hemoglobin 29.1 pg (26-34); Mean Corpuscular Volume 82.8 fl (80-100); Nucleated Red Blood Cells Absolute Auto 0.000 K/mm3 (0.0-0.012); Nucleated Red Blood Cells Perc 0.0 % (0.0-0.2); Platelet Count Result 273 k/mm3 (150-375); Red Blood Count 4.64 M/mm3 (4.2-5.4); White Blood Count 12.3 K/mm3 (4.5-10.0)
[2024-12-27 07:37] LABS: Alanine Aminotransferase 18 U/L (6-35); Albumin Level 4.5 g/dL (3.5-5.1); Alkaline Phosphatase 91 U/L (38-126); Anion Gap 10 mmol/L (4-12); Aspartate Amino Transferase 25 U/L (14-36); Bilirubin,Total 0.4 mg/dL (0.2-1.3); Blood Urea Nitrogen 8 mg/dL (7-17); Calcium 9.0 mg/dL (8.4-10.2); Carbon Dioxide 24 mmol/L (22-30); Chloride 103 mmol/L (98-107); Estimated CRCL calculation 100 ml/min; Estimated Glomerular Filt Rate > 60; Glucose 117 mg/dL (65-110); INR 0.9; Lipase 53 U/L (23-300); Potassium 3.3 mmol/L (3.4-5.0); Prothrombin Time 12.4 Seconds (11.1-14.7); Sodium 137 mmol/L (137-145); Total Protein 8.0 g/dL (6.3-8.2)
--- OUTSIDE RECORDS SUMMARY | 2024-12-27 07:37 | XMS_ITS | Clinical Summary ---
Author Organization [facility] [employer] Address [address] [place] [address] Care Team Providers Care Chinese Medicine Practitioner Name Role Phone Unavailable Primary Care Provider Unavailabl e Source Comments [facility] [employer],non-owned Affiliates and Associated Physician Practices is amultiple site organization consisting of ambulatory clinics and hospital sitesin [place], [place], [place] and [place]. This disclosure is being madepursuant to the Care Everywhere program and may not contain all information available regarding this patient. 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 [place]ICAID [place] [facility] MEDICAID - OUT OF STATE
[2024-12-27 07:38] LABS: Partial Thromboplastin Time 28.1 Seconds (22.3-36.8)
[2024-12-27 07:48] LABS: Troponin I < 0.012 ng/mL (0.000-0.034)
[2024-12-27] MEDS: ASPIRIN 81 MG CHEWABLE TABLET 324 MG PO (08:14)
[2024-12-27 08:21] LABS: Magnesium 1.9 mg/dL (1.6-2.3)
[2024-12-27 08:30] LABS: BEDSIDEPREGUCG Negative (Negative)
[2024-12-27 08:35] LABS: Add Urine Microscopic? YES; Appearance Urine Clear (Clear); Glucose Urine UA Negative (Negative); Leukocyte Esterase Ur Trace LEU/UL (Negative); Nitrate Urine Negative (Negative); Non Pathogenic Casts 0-2; Specific Grav Ur 1.013 (1.001-1.035)
[2024-12-27 08:52] LABS: Thyroid Stimulating Hormone Reflex 7.590 uIU/mL (0.465-4.68)
[2024-12-27 09:23] LABS: Free T4 Free Thyroxine Reflex 1.15 ng/dL (0.78-2.19)
--- NOTE | 2024-12-27 09:50 | ECG_ITS ---
Test Date: 2024-12-27 09:57:41 Measurements Intervals [place] Rate: 114 P: 28 AK: 127 QRS: 59 QRSD: 90 T: 33 QT: 322 QTc: 445 Interpretive Statements SINUS TACHYCARDIA BORDERLINE T WAVE ABNORMALITY- ANTERIOR LEADS ABNORMAL ECG Compared to ECG 12/27/2024 07:19:34 NO SIGNIFICANT CHANGE Electronically Signed On 12-27-2024 16:41:47 CDT by Vincent Hendrickson D.O.
[2024-12-27 10:03] LABS: Total Triiodothyronine (T3) 1.47 NG/ML (0.82-1.58)
[2024-12-27] MEDS: SODIUM CHLORIDE 0.9% IV 1,000 ML 999 ML IV CONT (10:12)
[2024-12-27] MEDS: POTASSIUM CHLORIDE 20 MEQ PACKET (FOR LIQUID) 40 MEQ PO (10:12)
[2024-12-27] MEDS: MAGNESIUM SULF 1 GM/D5W 100 ML 1 GM/100 ML BAG IVPB (10:13)
[2024-12-27 10:49] LABS: Troponin I < 0.012 ng/mL (0.000-0.034)
--- NOTE | 2024-12-27 11:21 | ED_ITS ---
HPI - General Adult General Chief complaint: Chest Pain Stated complaint: chest pain / numbess Time Seen by Provider: 12/27/24 07:18 History of Present Illness HPI narrative: Patient 24-year-old female who presents emergency department with chief complaint chest pain and palpitations. Patient reports that she had a negative stress test a few years ago, reports that she knows her heart rate was running in the 140s patient states she also had tingling in both of her arms down leg patient reports no weakness the patient reports no shortness of breath with this Related Data Allergies Allergy/AdvReac Type Severity Reaction Status Date / Time No Known Allergies Allergy Verified 12/27/24 07:15 Review of Systems 2 Review of Systems: A 10 system review of systems was completed on the patient and is negative except for what is stated in the HPI. Nursing and ancillary documentation was reviewed. [facility] Past Medical History Medical History Right hand dominant Type 2 diabetes mellitus BMI 29.0-29.9,adult BMI 32.0-32.9,adult BMI 31.0-31.9,adult BMI 30.0-30.9,adult BMI 27.0-27.9,adult Anxiety GERD (gastroesophageal reflux disease) Palpitations BMI 28.0-28.9,adult ADD (attention deficit disorder) without hyperactivity Surgical History Surgical History No significant past surgical history Family History Family History Father Alive and well Hypertension Mother Hypertension Epilepsy Sibling No problems noted. Social History Social History Social History: Engaged Smoking status: Never smoker Second hand tobacco smoke exposure: No Alcohol intake: never Substance use: never Substance use type: does not use Do You Feel Safe in your Home?: Yes Lack of Transportation: No Lack of Food: Never True Current Housing: I Have Housing Concerned About Future Housing: No Difficulty Paying Gas/Electric Bills: No Difficulty Paying for Meds: No Currently Unemployed: No Difficulty w/ Childcare or Family Care: No Living arrangements: with family Additional living arrangements comments: mom, dad, sister, fiance Occupation/Education: other Gender identity (if verbalized by the patient): Female Exam 2 Narrative: GENERAL: Well-appearing, well-nourished, and in no acute distress. HEAD: Normocephalic, atraumatic. EYES: PERRLA and EOMI. ENT: Nares clear, no rhinorrhea or epistaxis. Mucous membranes moist. NECK: Supple. CHEST: Clear to auscultation. No respiratory distress. HEART: Tachycardic rate and rhythm. No murmur heard. Normal peripheral pulses. ABDOMEN: Soft, nontender, nondistended, normal active bowel sounds. EXTREMITIES: Normal range of motion. No edema. SKIN: Warm, dry, no rash. NEURO: No focal deficits. Alert and oriented x3. PSYCH: Normal mood and affect. Course Vital Signs Vital signs: Vital Signs Pulse Rate 136 H 12/27/24 07:13 Respiratory Rate 16 12/27/24 07:13 Blood Pressure 129/72 12/27/24 07:13 Pulse Oximetry 100 12/27/24 07:13 Oxygen Delivery Room Air 12/27/24 07:13 Temperature 36.9 C 12/27/24 07:24 Pulse Rate 134 H 12/27/24 14:05 Respiratory Rate 18 12/27/24 12:47 Blood Pressure 122/81 12/27/24 14:05 Pulse Oximetry 100 12/27/24 10:26 Oxygen Delivery Room Air 12/27/24 07:28 Medical Decision Making [facility] Narrative Medical decision making narrative: Differential diagnosis includes ACS, electrolyte abnormality, dehydration, anxiety, hyperthyroidism,PE, EKG showed sinus tachycardia Electrolytes showed a potassium of 3.3 and a magnesium of 1.9 the patient was given 40 mEq of p.o. potassium and 1 g of IV magnesium patient was orthostatic on exam and was given 2 L of normal saline boluses Urinalysis showed no evidence UTI D-dimer was negative Vital Signs Vital Signs: Vital Signs Pulse Rate 136 H 12/27/24 07:13 Respiratory Rate 16 12/27/24 07:13 Blood Pressure 129/72 12/27/24 07:13 Pulse Oximetry 100 12/27/24 07:13 Oxygen Delivery Room Air 12/27/24 07:13 Temperature 36.9 C 12/27/24 07:24 Pulse Rate 134 H 12/27/24 14:05 Respiratory Rate 18 12/27/24 12:47 Blood Pressure 122/81 12/27/24 14:05 Pulse Oximetry 100 12/27/24 10:26 Oxygen Delivery Room Air 12/27/24 07:28 Lab Data 12/27/24 07:19 12/27/24 07:19 Labs: Lab Results 12/27/24 12/27/24 12/27/24 Range/Units 07:19 08:21 08:28 WBC 12.3 H (4.5-10.0) K/mm3 RBC 4.64 (4.2-5.4) M/mm3 Hgb 13.5 (12.0-15.0) g/dL Hct 38.4 (37.0-47.0) % MCV 82.8 (80-100) fl MCH 29.1 (26-34) pg MCHC 35.2 (32-36) g/dl RDW 12.8 (11.5-14.5) % Plt Count 273 (150-375) k/mm3 MPV 10.3 (7.4-10.4) fl Immature Gran % (Auto) 0.4 (0-0.5) % Neut % (Auto) 66.1 (45.5-73.1) % Lymph % (Auto) 25.4 (18.3-44.2) % [place] % (Auto) 6.7 (2.6-8.5) % Eos % (Auto) 1.0 (0-4.4) % Baso % (Auto) 0.4 (0.2-1.2) % Lymph # (Auto) 3.13 (0.9-3.2) K/mm3 [place] # (Auto) 0.8 H (0.1-0.6) K/mm3 Eos # (Auto) 0.1 (0-0.3) K/mm3 Baso # (Auto) 0.1 (0.0-0.1) K/mm3 Abs Immat Gran (auto) 0.05 H (0.00-0.031) K/mm3 Absolute Neuts (auto) 8.1 H (1.3-6.7) K/mm3 Absolute Nucleated RBC 0.000 (0.0-0.012) K/mm3 Nucleated RBC % 0.0 (0.0-0.2) % PT 12.4 (11.1-14.7) Seconds INR 0.9 APTT 28.1 (22.3-36.8) Seconds D-Dimer < 0.27 (<0.48) ug/mL Sodium 137 (137-145) mmol/L Potassium 3.3 L (3.4-5.0) mmol/L Chloride 103 (98-107) mmol/L Carbon Dioxide 24 (22-30) mmol/L Anion Gap 10 (4-12) mmol/L BUN 8 (7-17) mg/dL Creatinine 0.79 (0.7-1.0) mg/dL Estim Creat Clear Calc 100 ml/min Estimated GFR > 60 (59 - ) Glucose 117 H (65-110) mg/dL Calcium 9.0 (8.4-10.2) mg/dL Magnesium 1.9 (1.6-2.3) mg/dL Total Bilirubin 0.4 (0.2-1.3) mg/dL AST 25 (14-36) U/L ALT 18 (6-35) U/L Alkaline Phosphatase 91 (38-126) U/L Troponin I < 0.012 (0.000-0.034) ng/mL Total Protein 8.0 (6.3-8.2) g/dL Albumin 4.5 (3.5-5.1) g/dL Lipase 53 (23-300) U/L TSH (Reflex) 7.590 H (0.465-4.68) uIU/mL Free T4 1.15 (0.78-2.19) ng/dL Total T3 1.47 (0.82-1.58) NG/ML Urine Color Yellow (Yellow) Urine Appearance Clear (Clear) Urine pH 8.0 (5.0-9.0) Ur Specific [place] 1.013 (1.001-1.035) Urine Protein Negative (Negative) mg/dL Urine Glucose (UA) Negative (Negative) mg/dL Urine Ketones Negative (Negative) mg/dL Ur Blood (Man) Negative (Negative) Urine Nitrate Negative (Negative) Urine Bilirubin Negative (Negative) Urine Urobilinogen 1.0 (<2.0) mg/dL Leukocyte Esterase Rfl Trace H (Negative) SAUD/UL Urine RBC 0-2 (0-2) /hpf Urine WBC 0-5 (0-3) /hpf Ur Squamous Epith Cells None seen (Few) /hpf Urine Bacteria None seen /hpf Urine Casts 0-2 POC Urine HCG, Qual Negative (Negative) 12/27/24 12/27/24 Range/Units 10:11 13:09 WBC (4.5-10.0) K/mm3 RBC (4.2-5.4) M/mm3 Hgb (12.0-15.0) g/dL Hct (37.0-47.0) % MCV (80-100) fl MCH (26-34) pg MCHC (32-36) g/dl RDW (11.5-14.5) % Plt Count (150-375) k/mm3 MPV (7.4-10.4) fl Immature Gran % (Auto) (0-0.5) % Neut % (Auto) (45.5-73.1) % Lymph % (Auto) (18.3-44.2) % [place] % (Auto) (2.6-8.5) % Eos % (Auto) (0-4.4) % Baso % (Auto) (0.2-1.2) % Lymph # (Auto) (0.9-3.2) K/mm3 [place] # (Auto) (0.1-0.6) K/mm3 Eos # (Auto) (0-0.3) K/mm3 Baso # (Auto) (0.0-0.1) K/mm3 Abs Immat Gran (auto) (0.00-0.031) K/mm3 Absolute Neuts (auto) (1.3-6.7) K/mm3 Absolute Nucleated RBC (0.0-0.012) K/mm3 Nucleated RBC % (0.0-0.2) % PT (11.1-14.7) Seconds INR APTT (22.3-36.8) Seconds D-Dimer (<0.48) ug/mL Sodium (137-145) mmol/L Potassium (3.4-5.0) mmol/L Chloride (98-107) mmol/L Carbon Dioxide (22-30) mmol/L Anion Gap (4-12) mmol/L BUN (7-17) mg/dL Creatinine (0.7-1.0) mg/dL Estim Creat Clear Calc ml/min Estimated GFR (59 - ) Glucose (65-110) mg/dL Calcium (8.4-10.2) mg/dL Magnesium (1.6-2.3) mg/dL Total Bilirubin (0.2-1.3) mg/dL AST (14-36) U/L ALT (6-35) U/L Alkaline Phosphatase (38-126) U/L Troponin I < 0.012 < 0.012 (0.000-0.034) ng/mL Total Protein (6.3-8.2) g/dL Albumin (3.5-5.1) g/dL Lipase (23-300) U/L TSH (Reflex) (0.465-4.68) uIU/mL Free T4 (0.78-2.19) ng/dL Total T3 (0.82-1.58) NG/ML Urine Color (Yellow) Urine Appearance (Clear) Urine pH (5.0-9.0) Ur Specific [place] (1.001-1.035) Urine Protein (Negative) mg/dL Urine Glucose (UA) (Negative) mg/dL Urine Ketones (Negative) mg/dL Ur Blood (Man) (Negative) Urine Nitrate (Negative) Urine Bilirubin (Negative) Urine Urobilinogen (<2.0) mg/dL Leukocyte Esterase Rfl (Negative) SAUD/UL Urine RBC (0-2) /hpf Urine WBC (0-3) /hpf Ur Squamous Epith Cells (Few) /hpf Urine Bacteria /hpf Urine Casts POC Urine HCG, Qual (Negative) Discharge Plan Discharge Clinical Impression: Atypical chest pain, Orthostatic hypotension Patient Disposition: Home Condition: Stable Instructions: Antibiotic Form, Chest Pain (ED) Patient Language: Jordanian Prescriptions: No Action ondansetron HCl 4 mg tablet 4 mg PO Q8H PRN (Reason: nausea and vomiting) Qty: 20 0RF sulfamethoxazole-trimethoprim [Bactrim DS] 800-160 mg tablet 1 tablet PO Q12H 5 Days Qty: 9 0RF Rx Instructions: rec'd first dose antibiotic in the ED 10/5 AM fluconazole 150 mg tablet 150 mg PO ONCE Qty: 2 0RF Rx Instructions: as a single dose. May repeat after 2 days Follow-up/Referrals: James Pierce MD [Primary Care Provider, Family Practice] Time of Disposition: 14:25
[2024-12-27] MEDS: LORazepam (*CRX) 0.5 MG TABLET PO (12:07)
--- NOTE | 2024-12-27 13:05 | ECG_ITS ---
Test Date: 2024-12-27 13:10:31 Measurements Intervals [place] Rate: 105 P: 26 [place]: 142 QRS: 49 QRSD: 85 T: 48 QT: 331 QTc: 439 Interpretive Statements SINUS TACHYCARDIA NONSPECIFIC T-WAVE ABNORMALITY- ANTERIOR LEADS BORDERLINE ECG Compared to ECG 12/27/2024 09:57:41 HEART RATE HAS DECREASED Electronically Signed On 12-27-2024 16:45:42 CDT by Vincent Hendrickson D.O.
--- NOTE | 2024-12-27 13:19 | PC.NURSE ---
Pt refusing to finish [employer] drinks
[2024-12-27 13:46] LABS: Troponin I < 0.012 ng/mL (0.000-0.034)
== END 2024-12-27 14:42 | disposition home or self-care (01) ==
PROVIDERS: Emergency Provider Emergency Medicine; PCP Family Medicine
DX: R07.89 Other chest pain (principal); I95.1 Orthostatic hypotension; E11.9 Type 2 diabetes mellitus without complications; F41.9 Anxiety disorder, unspecified; K21.9 Gastro-esophageal reflux disease without esophagitis; F98.8 Other specified behavioral and emotional disorders with onset usually occurring in childhood and adolescence; R00.0 Tachycardia, unspecified
CPT/HCPCS: 36415; 71046; 80053; 81001; 81025; 83690; 83735; 84439; 84443; 84480; 84484; 85025; 85380; 85610; 85730; 93005; 96365; 99284; A9270; J3475; J7030

== ENCOUNTER 2024-12-29 10:18 | Outpatient (CLI) | payer OTHER, SELFPAY ==
[2024-12-29 11:02] LABS: Hematocrit 37.9 % (37.0-47.0); Hemoglobin 13.4 g/dL (12.0-15.0); Immature Granulocyte Percent A 0.3 % (0-0.5); Lymphocytes Absolute Auto 2.13 K/mm3 (0.9-3.2); Mean Corpuscular HGB Conc 35.4 g/dl (32-36); Mean Corpuscular Hemoglobin 29.3 pg (26-34); Mean Corpuscular Volume 82.9 fl (80-100); Nucleated Red Blood Cells Absolute Auto 0.000 K/mm3 (0.0-0.012); Nucleated Red Blood Cells Perc 0.0 % (0.0-0.2); Platelet Count Result 258 k/mm3 (150-375); Red Blood Count 4.57 M/mm3 (4.2-5.4); White Blood Count 10.6 K/mm3 (4.5-10.0)
[2024-12-29 11:12] LABS: Hemoglobin A1C 4.8 % (<5.7)
[2024-12-29 11:23] LABS: Add Urine Microscopic? YES; Appearance Urine Clear (Clear); Glucose Urine UA Negative (Negative); Leukocyte Esterase Ur 1+ LEU/UL (Negative); Need Manual Microscopic Reviewed; Nitrate Urine Negative (Negative); Non Pathogenic Casts 0-2; Specific Grav Ur 1.016 (1.001-1.035)
[2024-12-29 11:28] LABS: Alanine Aminotransferase 18 U/L (6-35); Albumin Level 4.3 g/dL (3.5-5.1); Alkaline Phosphatase 90 U/L (38-126); Aspartate Amino Transferase 25 U/L (14-36); Bilirubin,Total 0.4 mg/dL (0.2-1.3); CRP 0.7 mg/dL (<1.0); Total Protein 7.6 g/dL (6.3-8.2)
--- OUTSIDE RECORDS SUMMARY | 2024-12-29 11:55 | XMS_ITS | Clinical Summary ---
Author Organization [facility] Address [address] [place] [address] Care Team Providers Care Multi Operation Machine Operator Name Role Phone Unavailable Primary Care Provider Unavailabl e Source Comments [facility],non-owned Affiliates and Associated Physician Practices is amultiple site organization consisting of ambulatory clinics and hospital sitesin [place], [place], [place]. This disclosure is being madepursuant to the Care Everywhere program and may not contain all information available regarding this patient. 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
--- OUTSIDE RECORDS SUMMARY | 2024-12-29 11:55 | XMS_ITS | Data Portability ---
Author Organization [facility] Address [address] [place] [place] [address] Care Team Providers Care Php Consultant Name Role Phone GUILLERMO WAN Primary Care Provider Assessment Encounter Date Assessment Date Assessment LastModified by Organization Details LastModified Time 11/06/2022 11/06/2022 Annual gynecological exam performed. Patient will come back in a year unless there are new symptoms. [email or web address] Not available 11/06/2022 14:43:49 Plan of Treatment Reminders Order Date Submit Date Provider Last Modified By Organization Details Last Modified Time Details Appointments None recorded. Lab None recorded. Referral None recorded. Procedures None recorded. Surgeries None recorded. Imaging US, transvagina l 2022 023 [email or web address] [facility], [address], [place], [address], 3 21:17:18 Medication Orders Junel Fe 24 1 mg-20 mcg (24)/75 mg (4) tablet 2022 023 JUAN [facility] [address] , [place], [address], 3 15:05:34 fluconazole 150 mg tablet 2022 023 [email or web address] 1 [facility] [address] , [place], [address], 3 14:45:18 nystatin-tr iamcinolone 100,000 unit/gram-0 .1 % topical ointment 2022 023 [email or web address] 1 [facility] [address], [place], [address], 3 14:45:20 Patient TargetsNo targets recorded. Patient [...] CASE REPOR T: Cytol ogy Gynec ologi henyr Repor t Case: [id number] Autho carol barker Provi gretchen: Heydi Kendall, CRIMINAL DEFENSE ATTORNEY Colle cted: 11/06 1621 Order ing Locat [...] patie nt consi derat ions. Not Available [facility] (Lab) [address], [place], [address], 11/09/2022 14:21:47 11/07/19 23 11/06/2022 TRICH OMONA S VAGIN VU (RRNA ) trichomonas vaginalis ribosomal RNA (rrna) Negati ve negati ve Not Available [facility] (Lab) [address], [place], [address], 11/09/2022 14:21:48 11/07/19 23 11/06/2022 CT/GC (TYLER) , THINP REP VIAL chlamydia trachomatis, PCR Negati ve negati ve Not Available [facility] (Lab) [address] [place], [address], 11/09/2022 14:21:48 11/07/19 23 11/06/2022 CT/GC (YTLER) , THINP REP VIAL neisseria gonorrhoeae, PCR Negati ve negati ve Not Available [facility] (Lab) [address], [place], [address], 11/09/2022 14:21:48 12/05/19 23 12/04/2022 US, trans vagin al No observ [facility]ion [facility] ed[facility] [address], [place], [address], 12/04/2022 16:30:09 12/05/19 23 12/04/2022 US, trans vagin al No observ ation record ed. JUAN Kelsey [address], [place], [address], 12/06/2022 01:27:23 Result Notes None recorded. Procedures Surgical History Date Name Laterality Status Provider Name and Address Organization Details Recorded Time 11/07/19 Date of Last Pap Smear completed Reyna Camejo [facility] 11/06/2022 16:21:23 08/30/19 09 tonsillectomy and adenoidectomy completed Lisa Del Valle [facility] 10/23/2022 11:43:05 Imaging Results None recorded. [...] Updated DateTime 10/23/2022 161.93 cm 28 kg/m2 51071.96 g 127/85 mm[Hg] Lisa Del Valle [facility] 10/23/2022 11:38:55 Date Recorded Body height Body mass index (BMI) Body weight Systolic And Diastolic Provider Name and Address Organization Details Last Updated DateTime 11/06/2022 161.93 cm 28.4 kg/m2 05833.15 g 120/77 mm[Hg] Reyna Camejo [facility] 11/06/2022 14:44:40 Social History Question Answer Notes LastModified by Organizat ion Details LastModified Time Tobacco Smoking Status Never Smoker Martina tanner [facility] 12/04/2022 14:28:03 How Many Years Have You Consumed Alcohol? 0 [email or web address] Information not available 11/06/2022 Are You Blind Or Do You Have Difficulty Seeing? No Information n ot available 10/23/2022 What Is Your Level Of Caffeine Consumption? Occasional [email or web address] Information not available 11/06/2022 How Much Tobacco Do You Chew? None [email or web address] Information not available 11/06/2022 In The 14 Days Before Symptom Onset, Have You Had Close Contact With A Laboratory-confirm ed COVID-19 While That Case Was Ill? No [email or web address] Information n ot available 11/06/2022 In The 14 Days Before Symptom Onset, Have You Had Close Contact With A Person Who Is Under Investigation For COVID-19 While That Person Was Ill? No [email or web address] Information not available 11/06/2022 Have You Been To An Area Known To Be High Risk For COVID-19? No [email or web address] Information not available 11/06/2022 Are You Deaf Or Do You Have Serious Difficulty Hearing? No Information not available 10/23/2022 What Type Of Diet Are You Following? REGULAR [email or web address] Information n ot available 11/06/2022 What Is The Highest Grade Or Level Of School You Have Completed Or The Highest Degree You Have Received? [id number] [email or web address] Information not available 11/06/2022 Are There Any Guns Present In Your Home? Yes [email or web address] Information not available 11/06/2022 Do You Use Protection During Sex? No [email or web address] Information not available 11/06/2022 Do You Use Your Seat Belt Or Car Seat Routinely? Yes [email or web address] Information not available 11/06/2022 Do You Have Smoke And Carbon Monoxide Detectors In Your Home? Yes [email or web address] Information not available 11/06/2022 At What Age Did You Start Smoking Tobacco? 0 [email or web address] Information not available 11/06/2022 How Much Tobacco Do You Smoke? No [email or web address] Information not available 11/06/2022 Do You Use Sunscreen Routinely? No [email or web address] Information not available 11/06/2022 How Many Years Have You Smoked Tobacco? 0 Information not available 11/06/2022 Have You Used IV Drugs? No [email or web address] Information not available 11/06/2022 Do You Have Difficulty Walking Or Climbing Stairs? No [email or web address] Information not available 12/04/2022 Sex: Unknown Functional Status Question Answer Note LastModified by Organizat ion Details LastModified Time Do you use any illicit or recreational drugs? No [email or web address] Information not available 11/06/2022 What is your level of alcohol consumption? None Information not available 10/23/2022 Are you able to walk independently without assistance or assistive devices? [email or web address] Information not available 10/23/2022 Are you able to care for yourself independently? Yes [email or web address] Information not available 12/04/2022 What is your occupation? Unemployed Information not available 11/06/2022 Do you have difficulty dressing, bathing, grooming, or toileting? No Information not available 12/04/2022 What is your exercise level? Occasional [email or web address] Information not available 11/06/2022 Mental Status Question Answer Note LastModified by Organization D etails LastModified Time Do you feel stressed (tense, restless, nervous, or anxious, or unable to sleep at night)? [id number] [email or web address] Information not available 11/06/2022 Family History Relationship Description Onset Age of this Age Resolved Age Notes LastModified by Organization Details LastModified Time Maternal Grandfather Anemia [email or web address] Not available 11:40:23 Maternal Grandfather Diabetes mellitus matera nl great grandf ather [email or web address] Not available 10/23/2022 11:41:40 Maternal Grandfather Essential hypertension [email or web address] Not available 14:28:03 Maternal Grandmother Malignant neoplasm of breast matern al great grandm other [email or web address] Not available 10/23/2022 11:40:47 Maternal Grandmother Essential hypertension [email or web address] Not available 14:28:03 Paternal Grandfather Malignant neoplasm of colon [email or web address] Not available 10/2022 11:40:59 Paternal Grandfather Essential hypertension [email or web address] Not available 14:28:03 Mother Essential hypertension [email or web address] Not available 14:28:03 Mother Seizure disorder [email or web address] Not available 2022 14:28:03 Father Essential hypertension [email or web address] Not available 14:28:03 Paternal Grandmother Essential hypertension [email or web address] Not available 14:28:03 Medical History Condition Response Allergies (Food, seasonal, environmental ) N Other N Breast Cancer N Drug/Latex Allergies/Reactions N Blood Transfusion N Dermatologic Disorders N Lung Disease N Defects or Inherited Disease N Breast Problem N Gestational Diabetes N Hematologic disorders N Anesthesia Complications N History of STI N Deep Vein Thrombosis N Polycystic ovary syndrome N Anxiety Disorder N Autoimmune disease N Arthritis N Infertility N Polyps N Acid Reflux (GERD) N History of abnormal pap N Cancer N Stroke N Varicosities N Neurologic/Epilepsy N Endometriosis N High Cholesterol N Headaches Y Fibromyalgia N Kidney Disease N Heart Problems N Kidney or Bladder Problems N Thyroid Problems N GI Problems N Eating Disorder [...] ICD10 Code Diagnosis IMO Codes Diagnosis Note [id number] IFEANYI Garcia [facility] [address] [address] 10/23/2022 10:47:50 10/23/2022 12:06:34 Pain in pelvis 56357339 R10.2 This patient is a 22 -year-old [...] and review of plan of care. Vaginitis 44127372 N76.0 Venereal d isease screening [id number] Z11.3 Cyst of ovary [id number] N 83.209 Contracept ion care management [id number] Z30.9 [id number] IFEANYI Garcia [facility] [address] [address] 11/06/2022 14:20:07 11/06/2022 15:16:55 Gynecologic examination 16301856 Z01.419 Take Calcium with Vitamin D daily [...] in 3-4 months Contracept ion care management [id number] Z30.9 Cyst of ovary 31909822 N 83.209 5.7cm right ovarian cyst, seen on u/s 3pa tient feeling well today - no symptoms, repeat u/s is scheduled for f/uprecaut ions reviewed with patient [id number] Arnold Mayes MD [facility] [address] [address] 12/04/2022 14:27:50 12/04/2022 14:55:56 Cyst of right ovary [id number] 0216309 N83.201 Health Concerns Section Related Observation LastModified by Organization Detai ls LastModified Time None Recorded Concern Status LastModified by Organization Details LastModified Time None Recorded Advance Directives Directive None Recorded Payers Insurance Date Sequence Insurance Name Policy Number Policy Dominguez Covered Member ID Dominguez Member ID Guarantor Name 12/03/2022 1 [employer] [id number] Иван Raza [id number] Иавн Raza 12/03/2022 2 [place] DEPARTMENT OF PUBLIC AID Shahida Raza [id number] Иван Raza Notes Date Note Type Note Provider Name and Address Organization Details Recorded Time 10/23/2022 text/html Beer-Pelvic PainReported by Patient 22yo [id number] to discuss pelvic pain/ovarian cystexperienced intense pelvic pain on 10/16/22, went to [facility]. Had an u/s performed - Found [...] urinary symptoms IFEANYI Garcia [address], [place], [address], [facility] 10/23/2022 12:04:32 11/06/2022 text/html Annual GYNReport ed by Patient IFEANYI Garcia [address], [place], [address], [facility] 11/06/2022 15:06:17 OBGyn Episode No OBEpisode recorded.
[2024-12-30 16:08] LABS: ANA by IFA Rfx Titer/Pattern Positive (.)
== END 2024-12-29 10:19 | disposition home or self-care (01) ==
PROVIDERS: PCP Family Medicine
DX: R74.8 Abnormal levels of other serum enzymes (principal); E16.1 Other hypoglycemia; E55.9 Vitamin D deficiency, unspecified; G43.909 Migraine, unspecified, not intractable, without status migrainosus; R35.0 Frequency of micturition; D72.829 Elevated white blood cell count, unspecified; E88.810 Metabolic syndrome; Z83.2 Family history of diseases of the blood and blood-forming organs and certain disorders involving the immune mechanism
CPT/HCPCS: 36415; 80076; 81001; 82024; 82533; 82627; 83036; 83525; 85025; 85652; 86038; 86140

== ENCOUNTER 2025-03-11 00:38 | Emergency (ER) | payer OTHER, SELFPAY ==
--- NOTE | ~2025-03-11 | XR_ITS ---
EXAMINATION: XR chest 1V portable 03/11/2025 03:00 INDICATION: Fever PROCEDURE: AP portable chest COMPARISON: Comparison to multiple prior studies sequentially, with oldest reviewed study dated 04/13/2022. FINDINGS: The lungs are clear. The cardiomediastinal silhouette is within normal limits. There are no pleural effusions. There is no pneumothorax suspected. IMPRESSION: 1: NO ACUTE CARDIOPULMONARY DISEASE. Reviewed, dictated and finalized at location O. UTER TESTER
--- OUTSIDE RECORDS SUMMARY | 2025-03-11 00:41 | XMS_ITS | Clinical Summary ---
Author Organization [facility] Address [address] [place] [address] Care Team Providers Care Manager Property Name Role Phone Unavailable Primary Care Provider Unavailabl e Source Comments [facility],non-owned Affiliates and Associated Physician Practices is amultiple site organization consisting of ambulatory clinics and hospital sitesin [place], [place], [place] and [place]. This disclosure is being madepursuant to the Care Everywhere program and may not contain all information available regarding this patient. Last updated 17.[facility] Allergies No known active allergies Medications * [...] Arachnoid cyst 07/07/2015 Chronic fatigue Staring spell Encounters Date Type Department Care Team Description 01/14/2025 Telephone [facility] Medical [facility] - Rheumatology [address] [place] [address], [address] [place] [address] Group, [facility] Medical Referral 01/11/2025 Transcribe Orders [facility] - Rheumatology [address], [address] [place] [address] [facility], [facility] Medical Positive DIEUDONNE (antinuclear antibody) ; Family history of blood disorder from Last 3 Months Family History Medical History Relation Name Comments [...] on file Legal 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 Gender Identity Not on file Sexual Orientation [...] of 3 - 19+ 3-dose series) 2020 PAP SMEAR 2022 DEPRESSION SCREENING 03/18/2024 COVID-19 VACCINE (1 - 2024-2 6 season) 2024 INFLUENZA VACCINE (#1) 2024 ZOSTER VACCINE (1 of 2) 07/19/2051 HIB VACCINE Aged Out No longer eligi ble based on patient's age to complete this topic MENINGOCOCCAL GROUPS A/C/Y/W VACCINE Aged Out No longer eligible b ased on patient's age to complete this topic PNEUMOCOCCAL VACCINE Aged Out No long er eligible based on patient's age to complete this topic Insurance [facility] [place] [facility] [place] [address] [facility] [place] [address] MEDICAID - OUT OF STATE
--- OUTSIDE RECORDS SUMMARY | 2025-03-11 00:41 | XMS_ITS | Data Portability ---
Author Organization [facility] Address [address] [place] [address] [place] [address] Care Team Providers Care Therapeutic Consultant Name Role Phone GUILLERMO WAN Primary Care Provider Assessment Encounter Date Assessment Date Assessment LastModified by Organization Details LastModified Time 11/06/2022 11/06/2022 Annual gynecological exam performed. Patient will come back in a year unless there are new symptoms. [email or web address] Not available 11/06/2022 14:43:49 Plan of Treatment Reminders Order Date Submit Date Provider Last Modified By Organization Details Last Modified Time Details Appointments None recorded. Lab None recorded. Referral None recorded. Procedures None recorded. Surgeries None recorded. Imaging US, transvagina l 2022 023 [email or web address] [place], [address], [place], [address], 3 21:17:18 Medication Orders Junel Fe 24 1 mg-20 mcg (24)/75 mg (4) tablet 2022 023 JUAN [facility] [address] , [place], [address], 3 15:05:34 fluconazole 150 mg tablet 2022 023 [email or web address] 1 [facility] [address] , [place], [address], 3 14:45:18 nystatin-tr iamcinolone 100,000 unit/gram-0 .1 % topical ointment 2022 023 [email or web address] 1 [facility] [address], [address] [facility], [place], [address], 3 14:45:20 Patient TargetsNo targets recorded. Patient [...] Autho carol barker Provi gretchen: Heydi Kendall, AMBULATORY SERVICE REPRESENTATIVE Colle cted: 11/06 1621 Order ing Locat [...] patie nt consi derat ions. Not Available [facility] (Lab) [address] [facility] [address], [place], [address], 11/09/2022 14:21:47 11/07/19 23 11/06/2022 TRICH OMONA S VAGIN VU (RRNA ) trichomonas vaginalis ribosomal RNA (rrna) Negati ve negati ve Not Available [facility] (Lab) [address] [facility], [place], [address], 11/09/2022 14:21:48 11/07/19 23 11/06/2022 CT/GC (TYLER) , THINP REP VIAL chlamydia trachomatis, PCR Negati ve negati ve Not Available [facility] (Lab) [address] [place], [address], 11/09/2022 14:21:48 11/07/19 23 11/06/2022 CT/GC (YTLER) , THINP REP VIAL neisseria gonorrhoeae, PCR Negati ve negati ve Not Available [facility] (Lab) [address] [facility], [place], [address], 11/09/2022 14:21:48 12/05/19 23 12/04/2022 US, trans vagin al [email or web address] [address], [place], [address], 12/04/2022 16:30:09 12/05/19 23 12/04/2022 US, trans vagin al No observ ation record ed. JUAN Cole [address], [place], [address], 12/06/2022 01:27:23 Result Notes None recorded. Procedures Surgical History Date Name Laterality Status Provider Name and Address Organization Details Recorded Time 11/07/19 Date of Last Pap Smear completed Reyna Camejo [facility] 11/06/2022 16:21:23 08/30/19 09 tonsillectomy and adenoidectomy completed Lisa Del Valle [facility] 10/23/2022 11:43:05 Imaging Results None recorded. [...] Updated DateTime 10/23/2022 161.93 cm 28 kg/m2 39291.96 g 127/85 mm[Hg] Lisa Del Valle [facility] 10/23/2022 11:38:55 Date Recorded Body height Body mass index (BMI) Body weight Systolic And Diastolic Provider Name and Address Organization Details Last Updated DateTime 11/06/2022 161.93 cm 28.4 kg/m2 10594.15 g 120/77 mm[Hg] Reyna Camejo [facility] 11/06/2022 14:44:40 Social History Question Answer Notes LastModified by Organizat ion Details LastModified Time Tobacco Smoking Status Never Smoker Martina tanner [facility] 12/04/2022 14:28:03 How Many Years Have You Consumed Alcohol? 0 [email or web address] Information not available 11/06/2022 Are You Blind Or Do You Have Difficulty Seeing? No Information n ot available 10/23/2022 What Is Your Level Of Caffeine Consumption? Occasional [email or web address] Information not available 11/06/2022 How Much Tobacco Do You Chew? None Information not available 11/06/2022 In The 14 Days Before Symptom Onset, Have You Had Close Contact With A Laboratory-confirm ed COVID-19 While That Case Was Ill? No [email or web address] Information n ot available 11/06/2022 In The 14 Days Before Symptom Onset, Have You Had Close Contact With A Person Who Is Under Investigation For COVID-19 While That Person Was Ill? No [email or web address] Information not available 11/06/2022 Have You Been To An Area Known To Be High Risk For COVID-19? No [email or web address] Information not available 11/06/2022 Are You Deaf Or Do You Have Serious Difficulty Hearing? No Information not available 10/23/2022 What Type Of Diet Are You Following? REGULAR [email or web address] Information n ot available 11/06/2022 What Is The Highest Grade Or Level Of School You Have Completed Or The Highest Degree You Have Received? CX09659-2 [email or web address] Information not available 11/06/2022 Are There Any Guns Present In Your Home? Yes [email or web address] Information not available 11/06/2022 Do You Use Protection During Sex? No [email or web address] Information not available 11/06/2022 Do You Use Your Seat Belt Or Car Seat Routinely? Yes [email or web address] Information not available 11/06/2022 Do You Have Smoke And Carbon Monoxide Detectors In Your Home? Yes Information not available 11/06/2022 At What Age Did You Start Smoking Tobacco? 0 [email or web address] Information not available 11/06/2022 How Much Tobacco Do You Smoke? No [email or web address] Information not available 11/06/2022 Do You Use Sunscreen Routinely? No [email or web address] Information not available 11/06/2022 How Many Years Have You Smoked Tobacco? 0 [email or web address] Information not available 11/06/2022 Have You Used IV Drugs? No [email or web address] Information not available 11/06/2022 Do You Have Difficulty Walking Or Climbing Stairs? No [email or web address] Information not available 12/04/2022 Sex: Unknown Functional Status Question Answer Note LastModified by Organizat ion Details LastModified Time Do you use any illicit or recreational drugs? No [email or web address] Information not available 11/06/2022 What is your level of alcohol consumption? None Information not available 10/23/2022 Are you able to walk independently without assistance or assistive devices? YESWOREST Information not available 10/23/2022 Are you able to care for yourself independently? Yes [email or web address] Information not available 12/04/2022 What is your occupation? Unemployed [email or web address] Information not available 11/06/2022 Do you have difficulty dressing, bathing, grooming, or toileting? No [email or web address] Information not available 12/04/2022 What is your exercise level? Occasional [email or web address] Information not available 11/06/2022 Mental Status Question Answer Note LastModified by Organization D etails LastModified Time Do you feel stressed (tense, restless, nervous, or anxious, or unable to sleep at night)? FH22510-1 [email or web address] Information not available 11/06/2022 Family History Relationship Description Onset Age of this Age Resolved Age Notes LastModified by Organization Details LastModified Time Maternal Grandfather Anemia [email or web address] Not available 11:40:23 Maternal Grandfather Diabetes mellitus matera nl great grandf ather vschroedter Not available 10/23/2022 11:41:40 Maternal Grandfather Essential hypertension [email or web address] Not available 14:28:03 Maternal Grandmother Malignant neoplasm of breast matern al great grandm other vschroedter Not available 10/23/2022 11:40:47 Maternal Grandmother Essential hypertension [email or web address] Not available 14:28:03 Paternal Grandfather Malignant neoplasm of colon vschroedter Not available 10/2022 11:40:59 Paternal Grandfather Essential hypertension [email or web address] Not available 14:28:03 Mother Essential hypertension [email or web address] Not available 14:28:03 Mother Seizure disorder [email or web address] Not available 2022 14:28:03 Father Essential hypertension [email or web address] Not available 14:28:03 Paternal Grandmother Essential hypertension [email or web address] Not available 14:28:03 Medical History Condition Response [...] ICD10 Code Diagnosis IMO Codes Diagnosis Note [id number] IFEANYI Garcia [place] [address] [address] 10/23/2022 10:47:50 10/23/2022 12:06:34 Pain in pelvis 00363042 R10.2 This patient is a 22 -year-old [...] and review of plan of care. Vaginitis 50204607 N76.0 Venereal d isease screening 544284233 Z11.3 Cyst of ovary 33001937 N 83.209 Contracept ion care management 746963761 Z30.9 [id number] IFEANYI Garcia [place] [address] [address] 11/06/2022 14:20:07 11/06/2022 15:16:55 Gynecologic examination 48705729 Z01.419 Take Calcium with Vitamin D daily [...] in 3-4 months Contracept ion care management 952280677 Z30.9 Cyst of ovary 53008320 N 83.209 5.7cm right ovarian cyst, seen on u/s 3pa tient feeling well today - no symptoms, repeat u/s is scheduled for f/uprecaut ions reviewed with patient [id number] Arnold Mayes MD [place] [address] [address] 12/04/2022 14:27:50 12/04/2022 14:55:56 Cyst of right ovary [id number] 0319291 N83.201 Health Concerns Section Related Observation LastModified by Organization Detai ls LastModified Time None Recorded Concern Status LastModified by Organization Details LastModified Time None Recorded Advance Directives Directive None Recorded Payers Insurance Date Sequence Insurance Name Policy Number Policy Dominguez Covered Member ID Dominguez Member ID Guarantor Name 12/03/2022 1 UMR [id number] Иван Raza [id number] Иван Raza 12/03/2022 2 [place] [employer] [place] [employer] Shahida Raza [id number] Иван Lawsrc Notes Date Note Type Note Provider Name and Address Organization Details Recorded Time 10/23/2022 text/html Beer-Pelvic PainReported by Patient 22yo [id number] to discuss pelvic pain/ovarian cystexperienced intense pelvic pain on 10/16/22, went to [place] ED. Had an u/s performed - Found [...] urinary symptoms IFEANYI Garcia [address], [place], [address], [facility] 10/23/2022 12:04:32 11/06/2022 text/html Annual GYNReport ed by Patient IFEANYI Garcia [address], [place], [address], [place] [facility] 11/06/2022 15:06:17 OBGyn Episode No OBEpisode recorded.
[2025-03-11 00:57] VITALS: BP 118/59; PULSE 152; RESP 20; TEMP 39.5; O2SAT 100
--- NOTE | 2025-03-11 01:52 | ECG_ITS ---
Test Date: 2025-03-11 01:56:26 Measurements Intervals [place] Rate: 144 P: 34 DC: 141 QRS: 52 QRSD: 101 T: 30 QT: 327 QTc: 506 Interpretive Statements SINUS TACHYCARDIA NONSPECIFIC ST & T-WAVE ABNORMALITY- ANT/INF LEADS BASELINE ARTIFACT- I, III, AVR, AVL ABNORMAL ECG Compared to ECG 12/27/2024 13:10:31 HEART RATE HAS INCREASED Electronically Signed On 03-11-2025 08:58:11 SCREEN MAKER by Vincent Hendrickson D.O.
[2025-03-11 01:59] VITALS: BP 112/55; PULSE 144; RESP 18; TEMP 39.5; O2SAT 98
[2025-03-11 02:11] LABS: BEDSIDEPREGUCG Negative (Negative)
[2025-03-11 02:38] LABS: Hematocrit 35.1 % (37.0-47.0); Hemoglobin 12.5 g/dL (12.0-15.0); Immature Granulocyte Percent A 0.3 % (0-0.5); Lymphocytes Absolute Auto 0.51 K/mm3 (0.9-3.2); Mean Corpuscular HGB Conc 35.6 g/dl (32-36); Mean Corpuscular Hemoglobin 29.2 pg (26-34); Mean Corpuscular Volume 82.0 fl (80-100); Nucleated Red Blood Cells Absolute Auto 0.000 K/mm3 (0.0-0.012); Nucleated Red Blood Cells Perc 0.0 % (0.0-0.2); Platelet Count Result 212 k/mm3 (150-375); Red Blood Count 4.28 M/mm3 (4.2-5.4); White Blood Count 5.8 K/mm3 (4.5-10.0)
[2025-03-11 02:41] VITALS: BP 115/46; PULSE 148; RESP 20; TEMP 39.4; O2SAT 100
[2025-03-11] MEDS: ACETAMINOPHEN 500 MG TABLET 1000 MG PO (02:43)
[2025-03-11] MEDS: SODIUM CHLORIDE 0.9% IV 1,000 ML 999 ML IV CONT ×3 (02:44→02:46)
[2025-03-11] MEDS: IBUPROFEN 400 MG TABLET 800 MG PO (02:44)
[2025-03-11 02:48] LABS: Add Urine Microscopic? YES; Appearance Urine Clear (Clear); Glucose Urine UA Negative (Negative); Leukocyte Esterase Ur Negative LEU/UL (Negative); Nitrate Urine Negative (Negative); Non Pathogenic Casts 0-2; Specific Grav Ur 1.023 (1.001-1.035)
--- NOTE | 2025-03-11 02:55 | ED.GENADULT ---
HPI - General Adult General Chief complaint: Arrhythmia/Palpitations Stated complaint: cough, KEITA, bilateral inner ear pain, chills Time Seen by Provider: 03/11/25 01:55 History of Present Illness HPI narrative: patient 24-year-old female who presents emergency department with chief complaint of flu-like symptoms and fever. Patient reports that she has baseline tachycardia and reports that she started having a fever body aches and generalized flu-like symptoms Related Data Allergies Allergy/AdvReac Type Severity Reaction Status Date / Time No Known Allergies Allergy Verified 02/18/25 07:24 Review of Systems Review of Systems: A 10 system review of systems was completed on the patient and is negative except for what is stated in the HPI. Nursing and ancillary documentation was reviewed. [facility] Past Medical History Medical History Right hand dominant Type 2 diabetes mellitus BMI 29.0-29.9,adult BMI 32.0-32.9,adult BMI 31.0-31.9,adult BMI 30.0-30.9,adult BMI 27.0-27.9,adult Anxiety GERD (gastroesophageal reflux disease) Palpitations BMI 28.0-28.9,adult ADD (attention deficit disorder) without hyperactivity Surgical History Surgical History No significant past surgical history Family History Family History Father Alive and well Hypertension Mother Hypertension Epilepsy Sibling No problems noted. Social History Social History Social History: Engaged Smoking status: Never smoker Second hand tobacco smoke exposure: No Alcohol intake: never Substance use: never Substance use type: does not use Lack of Transportation: No Lack of Food: Never True Current Housing: I Have Housing Concerned About Future Housing: No Difficulty Paying Gas/Electric Bills: No Difficulty Paying for Meds: No Currently Unemployed: No Difficulty w/ Childcare or Family Care: No Living arrangements: with family Additional living arrangements comments: mom, dad, sister, fiance Occupation/Education: other Gender identity (if verbalized by the patient): Female Exam Narrative: GENERAL: Well-appearing, well-nourished, and in no acute distress. HEAD: Normocephalic, atraumatic. EYES: PERRLA and EOMI. ENT: Nares clear, no rhinorrhea or epistaxis. Mucous membranes moist. NECK: Supple. CHEST: Clear to auscultation. No respiratory distress. HEART: tachycardic rate and regular rhythm. No murmur heard. Normal peripheral pulses. ABDOMEN: Soft, nontender, nondistended, normal active bowel sounds. EXTREMITIES: Normal range of motion. No edema. SKIN: Warm, dry, no rash. NEURO: No focal deficits. Alert and oriented x3. PSYCH: Normal mood and affect. Course Vital Signs Vital signs: Vital Signs Temperature 39.5 C H 03/11/25 00:57 Pulse Rate 152 H 03/11/25 00:57 Respiratory Rate 20 03/11/25 00:57 Blood Pressure 118/59 L 03/11/25 00:57 Pulse Oximetry 100 03/11/25 00:57 Temperature 39.4 C H 03/11/25 02:41 Pulse Rate 148 H 03/11/25 02:41 Respiratory Rate 20 03/11/25 02:41 Blood Pressure 115/46 L 03/11/25 02:41 Pulse Oximetry 100 03/11/25 02:41 Oxygen Delivery Room Air 03/11/25 01:59 MDM Differential Diagnosis Differential Diagnosis: differential diagnosis includes influenza, pneumonia, dehydration, sepsis, CBC showed a white count of 5.8 electrolytes showed no acute abnormalities troponin was negative procalcitonin 0.1 urinalysis showed no evidence UTI patient received 30 milliliters/kilogram of normal saline boluses received Tylenol and ibuprofen for the fever strep was negative COVID flu and RSV were positive for influenza A the patient was given a dose of Tamiflu in the emergency department the patient be discharged with prescription for Tamiflu and Tessalon Perles Lab Data 03/11/25 02:23 03/11/25 02:23 Labs: Lab Results 03/11/25 03/11/25 Range/Units 02:02 02:23 WBC 5.8 (4.5-10.0) K/mm3 RBC 4.28 (4.2-5.4) M/mm3 Hgb 12.5 (12.0-15.0) g/dL Hct 35.1 L (37.0-47.0) % MCV 82.0 (80-100) fl MCH 29.2 (26-34) pg MCHC 35.6 (32-36) g/dl RDW 12.5 (11.5-14.5) % Plt Count 212 (150-375) k/mm3 MPV 10.5 H (7.4-10.4) fl Immature Gran % (Auto) 0.3 (0-0.5) % Neut % (Auto) 79.5 H (45.5-73.1) % Lymph % (Auto) 8.7 L (18.3-44.2) % [place] % (Auto) 11.3 H (2.6-8.5) % Eos % (Auto) 0.0 (0-4.4) % Baso % (Auto) 0.2 (0.2-1.2) % Lymph # (Auto) 0.51 L (0.9-3.2) K/mm3 [place] # (Auto) 0.7 H (0.1-0.6) K/mm3 Eos # (Auto) 0.0 (0-0.3) K/mm3 Baso # (Auto) 0.0 (0.0-0.1) K/mm3 Abs Immat Gran (auto) 0.02 (0.00-0.031) K/mm3 Absolute Neuts (auto) 4.6 (1.3-6.7) K/mm3 Absolute Nucleated RBC 0.000 (0.0-0.012) K/mm3 Nucleated RBC % 0.0 (0.0-0.2) % Sodium Pending Potassium Pending Chloride Pending Carbon Dioxide Pending Anion Gap Pending BUN Pending Creatinine Pending Estim Creat Clear Calc Pending Estimated GFR Pending Glucose Pending Lactic Acid Pending Calcium Pending Magnesium Pending Total Bilirubin Pending AST Pending ALT Pending Alkaline Phosphatase Pending Troponin I Pending Total Protein Pending Albumin Pending Procalcitonin Pending Urine Color Pending Urine Appearance Pending Urine pH Pending Ur Specific [place] Pending Urine Protein Pending Urine Glucose (UA) Pending Urine Ketones Pending Ur Blood (Man) Pending Urine Nitrate Pending Urine Bilirubin Pending Urine Urobilinogen Pending Leukocyte Esterase Rfl Pending POC Urine HCG, Qual Negative (Negative) Influenza A (RT-PCR) Pending Influenza B (RT-PCR) Pending RSV (RT-PCR) Pending SARS-CoV-2 RNA (RT-PCR) Pending Group A Strep (PCR) Pending Discharge Plan Discharge Clinical Impression: Influenza A, Acute upper respiratory infection Patient Disposition: Home Condition: Stable Instructions: Antibiotic Form, Influenza (ED), Upper Respiratory Infection (ED) Patient Language: [place] Islander Prescriptions: New benzonatate 200 mg capsule 200 mg PO TID PRN (Reason: cough) Qty: 21 0RF oseltamivir [Tamiflu] 75 mg capsule 75 mg PO Q12H 5 Days Qty: 10 0RF No Action Ubrelvy 100 mg tablet 50 mg PO ONCE Qty: 14 0RF Rx Instructions: as a single dose If the migraine comes back or does not fully improve, you may take a second dose after 2 hours Follow-up/Referrals: James Pierce MD [Primary Care Provider, [facility]]
[2025-03-11 03:01] LABS: Alanine Aminotransferase 17 U/L (6-35); Albumin Level 4.8 g/dL (3.5-5.1); Alkaline Phosphatase 94 U/L (38-126); Anion Gap 12 mmol/L (4-12); Aspartate Amino Transferase 28 U/L (14-36); Bilirubin,Total 0.5 mg/dL (0.2-1.3); Blood Urea Nitrogen 9 mg/dL (7-17); Calcium 9.3 mg/dL (8.4-10.2); Carbon Dioxide 20 mmol/L (22-30); Chloride 103 mmol/L (98-107); Estimated CRCL calculation 82 ml/min; Estimated Glomerular Filt Rate > 60; Glucose 101 mg/dL (65-110); Magnesium 1.7 mg/dL (1.6-2.3); Potassium 3.7 mmol/L (3.4-5.0); Sodium 135 mmol/L (137-145); Total Protein 8.4 g/dL (6.3-8.2)
[2025-03-11 03:04] LABS: Strep Group A RT-PCR NOT DETECTED (Negative)
[2025-03-11 03:12] LABS: Troponin I < 0.012 ng/mL (0.000-0.034)
[2025-03-11 03:16] LABS: Influenza A QL RT-PCR Positive (Negative); Influenza B QL RT-PCR Negative (Negative); RSV RNA, RT-PCR Negative (Negative); SARS-CoV-2 RNA PCR Negative (Negative)
[2025-03-11 04:11] LABS: Procalcitonin 0.1 ng/mL
[2025-03-11] MEDS: OSELTAMIVIR PHOSPHATE 75 MG CAPSULE PO (05:06)
[2025-03-11 05:08] VITALS: BP 107/83; PULSE 117; RESP 23; TEMP 37.3; O2SAT 98
== END 2025-03-11 07:41 | disposition home or self-care (01) ==
PROVIDERS: Emergency Provider Emergency Medicine; PCP Family Medicine
DX: J10.1 Influenza due to other identified influenza virus with other respiratory manifestations (principal); E11.9 Type 2 diabetes mellitus without complications; K21.9 Gastro-esophageal reflux disease without esophagitis; F98.8 Other specified behavioral and emotional disorders with onset usually occurring in childhood and adolescence; Z20.822 Contact with and (suspected) exposure to COVID-19
CPT/HCPCS: 36415; 71045; 80053; 81001; 81025; 83605; 83735; 84145; 84484; 85025; 87040; 87637; 87651; 93005; 96360; 99284; A9270; J7030